=== PATIENT | female | born 1980 | race Caucasian/White ===

== ENCOUNTER → 2017-11-30 16:20 | Outpatient (CLI) | payer OTHER, SELFPAY ==
[2017-12-06 09:23] LABS: HPV APTIMA, High Risk Negative (Negative)
== END ==
PROVIDERS: Family Provider Family Medicine; PCP Family Medicine; Visit Provider Nurse Practitioner Women's Health
DX: Z12.4 Encounter for screening for malignant neoplasm of cervix (principal)
CPT/HCPCS: 88175; G0145

== ENCOUNTER 2020-12-20 18:00 | Outpatient (RCR) | payer BC, SELFPAY ==
[2020-03-16 08:33] VITALS: BMI 32.4
--- NOTE | 2020-11-29 18:54 | HP.PTEVAL ---
Patient's Visit Information DANAY CALIX is a 40 year old F referred to Physical Therapy by Dr. Tariq Saucedo MD with a diagnosis of Impingement syndrome of R shoulder. Date of Evaluation: 11/29/20 Physical Therapist: Alberto Cohen, PT, Cert MDT, OCS - Visit Plan Frequency: 1x/Week Duration: 4 Weeks Plan: 1x/week for 4 week per POC. PT Interventions: UE and Rotator cuff strengthening, postural training, flexibiliy, Shoulder AROM, body mechanics. - Subjective Patient is a 40 year old female presenting with R shoulder pain and symptoms indicating postural related shoulder abnormalities with possible impingement syndrome. 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 Reports pain of the lateral side of the arm. States this has been going on for 6 weeks (Insidious onset). Sleeping is difficult; sleeps on L side. Aleve helps to decrease pain. Denies going to physical therapy in the past for any injuries. Occassionaly gets numbness and tingling down the arm but stops at the elbow. Hx of wrist fractures bilaterally. X-ray unremarkable. 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 R shoulder flexion 145 degrees, abd 98 degrees, scaption 130 degrees. UE MMT: R shoulder flexion 4/5, abd 4-/5, IR 4/5, ER 4-/5, biceps 4+/5, elbow ext 4+/5. L shoulder flexion 5/5, abd 5/5, IR 4+/5, ER 4+/5, biceps 5/5, elbow ext 4+/5. Functional ER: Symmetrical B UE. Functional IR: L T 12, R sacrum. Posture: rounded shoulders, slightly forward head. Palpation: TTP along lateral deltoid, biccipital groove. Sensation: Intact to light touch in B UE. PROM: WFL - Special Tests R Shoulder Empty Can - SS: Positive R Shoulder Neer - Impingement: Positive - Goals Goal 1:: Patient will demonstrate independence with HEP. 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 Goal Time Frame: 4-6 Weeks Goal 3:: Patient will demonstrate painfree R shoulder AROM for improved functional mobility. Goal Time Frame: 4-6 Weeks Goal 4:: Patient will demonstrate 150 degrees of shoulder flexion/abd/scap for improved functional mobility and getting dressed. Goal Time Frame: 4-6 Weeks Goal 5:: Patient will improve QuickDASH score by 5 or > points for improved QOL. Goal Time Frame: 4-6 Weeks - Rehabilitation Potential Physical Therapy Diagnosis: Patient is a 40 year old female presenting to the clinic with R shoulder pain, painful MMT with noted rotator cuff weakness, and painful AROM. Demonstrates R shoulder PROM that is WFL. Symptoms are consistent with postural related impingement of R shoulder possible tendonesis. Rehabilitation Potential: Good - Anticipated Interventions Patient/Client Instruction: Educate patient on: Condition, Plan of Care For the Purpose of:: To decrease pain, To increase ROM, To improve muscle performance and motor function, To improve ability to perform ADL's, To increase tolerance to activity/condition/position, To improve performance and independence with ADL's, To improve ability of physical actions for home/community/work/leisure, To increase flexibility/ROM, To improve endurance, To assume or resume ADL's, To improve health and function, To improve self management, To improve ability to perform tasks related to life management, To improve tolerance to ADL's Therapeutic Exercise to Include: Strength training, Endurance training, Body mechanics, Postural training, Flexibilty training, Active ROM, Scapular Strength/Stabilization Comment: Rotator cuff strengthening, postural training. For the Purpose of:: To decrease pain, To increase ROM, To improve muscle performance and motor function, To improve ability to perform ADL's, To increase tolerance to activity/condition/position, To improve performance and independence with ADL's, To improve ability of physical actions for home/community/work/leisure, To increase flexibility/ROM, To improve endurance, To assume or resume ADL's, To improve health and function, To improve self management, To improve ability to perform tasks related to life management, To improve tolerance to ADL's IF ES: Yes Other electric stimulation: Yes Cryotherapy (ice pack, ice massage): Yes Thermo therapy (hot pack): Yes For the Purpose of:: To decrease pain, To increase ROM, To improve muscle performance and motor function, To improve ability to perform ADL's, To increase tolerance to activity/condition/position, To improve performance and independence with ADL's, To improve ability of physical actions for home/community/work/leisure, To increase flexibility/ROM, To improve endurance, To assume or resume ADL's, To improve health and function, To improve self management, To improve ability to perform tasks related to life management, To improve tolerance to ADL's Thank you for the opportunity to evaluate your patient. For Medicare and Medicare HMO plans, please review the plan of care and approve it. It will need to be FAXED BACK to us at [phone] for Medicare purposes. For Medicare only, by signing this I certify the plan of care. Please let me know if there are questions or concerns regarding this plan of care. Physician Signature: Date:
--- NOTE | 2020-12-20 18:41 | HP.PTDCSUM ---
It has been my pleasure to treat DANAY CALIX referred by Dr. Tariq Saucedo MD, with the diagnosis of Impingement syndrome of R shoulder for a total of 4 visit(s). Discharge Date: 12/20/20 Please see the following information for a summary of their discharge status. Subjective: 100 % no pain. Back normal with function Right Shoulder Pain Intensity (Out of 10): 0 % Improvement: 100 Objective/Function: AROM: SHOULDER FLEXION/ABD 165 DEGREES,ER,IR T9. MMT: RTC 4/5 SUPRASPINATOUS 4-/5 ,DELTOID Goal 1:: Patient will demonstrate independence with HEP. 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 Goal Progress: Goal Met Goal 3:: Patient will demonstrate painfree R shoulder AROM for improved functional mobility. Goal Progress: Goal Met Goal 4:: Patient will demonstrate 150 degrees of shoulder flexion/abd/scap for improved functional mobility and getting dressed. Goal Progress: Goal Met Goal 5:: Patient will improve QuickDASH score by 5 or > points for improved QOL. Plan: D/C Discharge Comments: hep If there are questions or concerns regarding this patient's physical therapy, please feel free to call me at [phone]. Thank you for the referral of this patient. Sincerely, Alberto Cohen PT, Cert MDT, OCS
== END 2020-12-20 19:00 | disposition home or self-care (01) ==
LOC: PT 18:00
PROVIDERS: PCP Family Medicine; Referring Provider Orthopaedic Surgery; Visit Provider Orthopaedic Surgery
DX: M75.41 Impingement syndrome of right shoulder (principal)
CPT/HCPCS: 97110; 97161

== ENCOUNTER → 2022-05-22 | Outpatient (CLI) | payer BC, SELFPAY ==
--- NOTE | 2022-05-22 07:11 | BI_ITS ---
MAMMOGRAPHY - BILATERAL SCREENING REASON FOR EXAM: Female, 42 years old. Routine annual screening examination. PERTINENT HISTORY: Aunt with breast cancer. TECHNIQUE: Digital bilateral breast adeola (3D mammographic acquisition) in the CC and MLO projections. 2-D mediolateral oblique (MLO) and craniocaudad (CC) views of both breasts were obtained. CAD: Full Field Digital Mammography with Computer Added Detection was performed. COMPARISON: None. Baseline examination. FINDINGS: Breast Composition: There are scattered areas of fibroglandular density. There are no dominant masses or suspicious calcifications. No other significant abnormalities are identified. There has been no significant change since the prior study. BI/SCRN MAMM (CAD)W/ADEOLA BILAT IMPRESSION: Stable bilateral screening mammogram. Yearly follow-up mammogram recommended. (A) ASSESSMENT CATEGORY: BIRADS Category 1: Negative. A letter regarding these results will be sent to the patient by the facility within 30 days. Approximately 10% of breast cancers are not detected by mammography. A normal mammogram should not delay biopsy of a clinically suspicious abnormality. Electronically Signed: Kirill Soriano, at 13:18 EDT ,
== END | disposition home or self-care (01) ==
LOC: OPBI 07:10
PROVIDERS: PCP Family Medicine; Visit Provider Nurse Practitioner Women's Health
DX: Z12.31 Encounter for screening mammogram for malignant neoplasm of breast (principal)
CPT/HCPCS: 77063; 77067

== ENCOUNTER → 2023-03-28 | Outpatient (CLI) | payer OTHER, SELFPAY ==
[2023-04-03 14:09] LABS: HPV APTIMA, High Risk Negative (Negative)
== END | disposition home or self-care (01) ==
LOC: LABSPEC 11:44
PROVIDERS: PCP Nurse Practitioner Primary Care; Referring Provider Nurse Practitioner Women's Health; Visit Provider Nurse Practitioner Women's Health
DX: Z12.4 Encounter for screening for malignant neoplasm of cervix (principal)
CPT/HCPCS: 87624; 88175; G0145

== ENCOUNTER → 2023-05-24 | Outpatient (CLI) | payer OTHER, SELFPAY ==
--- NOTE | 2023-05-24 07:07 | BI_ITS ---
MAMMOGRAPHY - BILATERAL SCREENING REASON FOR EXAM: Female, 43 years old. Routine annual screening examination. PERTINENT HISTORY: Aunt with breast cancer. TECHNIQUE: Digital bilateral breast adeola (3D mammographic acquisition) in the CC and MLO projections. 2-D mediolateral oblique (MLO) and craniocaudad (CC) views of both breasts were obtained. CAD: Full Field Digital Mammography with Computer Added Detection was performed. COMPARISON: Comparison is made with prior study May 22, 2022. FINDINGS: Breast Composition: There are scattered areas of fibroglandular density. There are no dominant masses or suspicious calcifications. No other significant abnormalities are identified. There has been no significant change since the prior study. BI/SCRN MAMM (CAD)W/ADEOLA BILAT IMPRESSION: Stable bilateral screening mammogram. Yearly follow-up mammogram recommended. (A) ASSESSMENT CATEGORY: BIRADS Category 1: Negative. A letter regarding these results will be sent to the patient by the facility within 30 days. Approximately 10% of breast cancers are not detected by mammography. A normal mammogram should not delay biopsy of a clinically suspicious abnormality. [id number] Electronically Signed: Raul Bah MD at 8:23 EDT ,
== END | disposition home or self-care (01) ==
LOC: OPBI 07:06
PROVIDERS: PCP Nurse Practitioner Primary Care; Referring Provider Nurse Practitioner Women's Health; Visit Provider Nurse Practitioner Women's Health
DX: Z12.31 Encounter for screening mammogram for malignant neoplasm of breast (principal)
CPT/HCPCS: 77063; 77067

== ENCOUNTER → 2024-05-26 | Outpatient (CLI) | payer OTHER, SELFPAY ==
--- NOTE | 2024-05-26 07:16 | BI_ITS ---
MAMMOGRAPHY - BILATERAL SCREENING REASON FOR EXAM: Female, 44 years old. Routine annual screening examination. PERTINENT HISTORY: Aunt with breast cancer. TECHNIQUE: Digital bilateral breast adeola (3D mammographic acquisition) in the CC and MLO projections. 2-D mediolateral oblique (MLO) and craniocaudad (CC) views of both breasts were obtained. CAD: Full Field Digital Mammography with Computer Added Detection was performed. COMPARISON: Comparison is made with prior study May 24, 2023 and May 22, 2022. FINDINGS: Breast Composition: There are scattered areas of fibroglandular density. There are no dominant masses or suspicious calcifications. No other significant abnormalities are identified. There has been no significant change since the prior study. BI/SCRN MAMM (CAD)W/ADEOLA BILAT IMPRESSION: Stable bilateral screening mammogram. Yearly follow-up mammogram recommended. (A) ASSESSMENT CATEGORY: BIRADS Category 1: Negative. A letter regarding these results will be sent to the patient by the facility within 30 days. Approximately 10% of breast cancers are not detected by mammography. A normal mammogram should not delay biopsy of a clinically suspicious abnormality. [id number] Electronically Signed: Raul Bah MD at 8:18 EDT ,
== END | disposition home or self-care (01) ==
LOC: OPBI 07:16
PROVIDERS: PCP Nurse Practitioner Primary Care; Referring Provider Nurse Practitioner Women's Health; Visit Provider Nurse Practitioner Women's Health
DX: Z12.31 Encounter for screening mammogram for malignant neoplasm of breast (principal)
CPT/HCPCS: 77063; 77067

== ENCOUNTER → 2025-05-28 | Outpatient (CLI) | payer OTHER, SELFPAY ==
--- OUTSIDE RECORDS SUMMARY | 2025-05-28 07:11 | XMS RPT_ITS | CCD ---
Author Organization [facility] Care Team Providers Care [employer] Guid[employer] Counselor Name Role Phone Podlogar GUARD IMMIGRATION.Beulah SHERWOOD Primary Care Provider Dr. Monik Palumbo Primary Care Provider Dr. Monik Palumbo Referring Provider Hood FISH DRIER FISH DRIER-C Trudi Attending Provider Podlogar GUARD IMMIGRATION.Beulah SHERWOOD Primary Care Provider Podlogar GUARD IMMIGRATION.Beulah SHERWOOD Primary Care Provider Dr. Monik Palumbo Referring Provider Hood FISH DRIER FISH DRIER-Clarissa Brush Attending Provider Podlogar FISH DRIERMACKENZIE Primary Care Provider Abena Cheng MD Primary Care Provider Abena Cheng MD Primary Care Provider Podlogar FISH DRIERBeulah Hagan Primary Care Provider Podlogar FISH DRIERBeulah Hagan Referring Provider Hood FISH DRIER-Trudi Romo Attending Provider Podlogar GUARD IMMIGRATION.Beulah SHERWOOD Unavailable Taylor GUARD IMMIGRATION.Erin SHERWOOD Unavailable GAVINLOGBEULAH RUIZ Attending Unavailable ABENA CHENG Primary Care Unavailable ABENA CHENG Primary Care Unavailable PODLOGARBEULAH Referring Unavailable PODLOGBEULAH RUIZ Attending Unavailable ABENA CHENG Primary Care Unavailable PODLOGAR, BEULAH Referring Unavailable ABENA CHENG Primary Care Unavailable MONIK LAZCANO Attending Unavailable ABENA CHENG Primary Care Unavailable Podlogar FISH DRIER, Beulah Primary Care Unavailable Podlogar FISH DRIER, Beulah Referring Unavailable Hood FISH DRIER, Trudi Attending Unavailable Podlogar FISH DRIER, Beulah Primary Care Unavailable Podlogar FISH DRIER, Beulah Referring Unavailable Marceline FISH DRIER, Trudi Attending Unavailable Hood FISH DRIER, Trudi Attending Unavailable Hood FISH DRIER, Trudi Referring Unavailable Podlogar FISH DRIER, Beulah Primary Care Unavailable Allergies Allergy Classification Reported Allergen(s) Allergy Type Date of Onset Reaction(s) Facility (16 sources) Penicillins; Translations: [PENICILLINS] Propensity to adverse reactions 6 [facility] Work Phone: (4 sources) Penicillin G Drug Allergy 2 Other [facility] (3 sources) Penicillins Propensity to adverse reactions 6 [facility] (1 source) Penicillin Drug Allergy 5 [facility] Repository Medications Current Medications Medication Drug Class(es) Dates Sig (Normalized) Sig (Original) benzonatate 100 mg oral capsule (1 source) Non-narcotic Antitussive Start: 04-05-2025 End: 04-12-2025 take 1 capsule by mouth every eight hours as needed benzonatate (TESSALON PERLE) 100 mg capsule Take 1 capsule by mouth three times a day as needed for cough for up to 7 days. 21 capsule 04/05/2025 04/12/2025 Active cephalexin 500 mg oral capsule (1 source) Cephalosporin Antibacterial Start: 01-06-2023 End: 01-11-2023 take 1 capsule by mouth four times daily cephALEXin (KEFLEX) 500 mg capsule Take 1 capsule by mouth four times daily for 5 days. 20 capsule 0 01/06/2023 01/11/2023 Active Comment on above: Take 1 capsule by [facility] four times daily for 5 days. doxycycline hyclate 100 mg oral tablet (2 sources) Tetracycline-class Drug Start: 04-05-2025 End: 04-10-2025 take 1 tablet by mouth twice daily doxycycline (VIBRA-TABS) 100 mg tablet Take 1 tablet by mouth two times a day for 5 days. 10 tablet 04/05/2025 04/10/2025 Active Start: 11-15-2022 End: 11-20-2022 take 1 tablet by mouth twice daily doxycycline monohydrate 100 mg tablet Take 1 tablet by mouth twice daily for 5 days. 10 tablet 0 11/15/2022 11/20/2022 Active Comment on above: Take 1 tablet by yeison twice daily for 5 days. levonorgestrel 0.221126 mg/hr intrauterine system (20 sources) Progestin, Progestin-containing Intrauterine Device Start: 01-26-2025 Levonorgestrel (Mirena) 21 mcg/24hr (up to 8 yrs) 52 mg intrauterine device Active 1 NMA INTRA-UTER ONCE January 26, 2025 12:00am as a single dose Start: 09-23-2019 levonorgestrel (MIRENA) 20 mcg/24 hours (5 yrs) 52 mg IUD 1 Each by INTRAUTERINE route one time only for 1 dose. Started February 2019 1 Each 09/23/2019 Active Start: 03-27-2019 End: 01-26-2025 Levonorgestrel (Liletta) 19. 5 mcg/24 hrs (5 yrs) 52 mg intrauterine device Discontinued 1 NMA INTRA-UTER ONCE March 27, 2019 12:00am January 26, 2025 11:00am Start: 03-27-2019 Levonorgestrel (Liletta) 19.5 mcg/24 hrs (5 yrs) 52 mg intrauterine device Active 1 DEVICE INTRA-UTER ONCE March 27, 2019 12:00am Comment on above: 1 Each by INTRAUTERI NE route one time only for 1 dose. Started February 2019 mupirocin 20 mg/ml topical cream (1 source) RNA Synthetase Inhibitor Antibacterial Start: 01-07-20 End: 01-17-20 mupirocin (BACTROBAN) 2 % cream Apply 1 application to affected area three times daily for 10 days. Location: right nares 30 g 0 01/06/2023 01/16/2023 Active Comment on above: Apply 1 application to affected area three times daily for 10 days. Location: right nares 24 hr phentermine 3.75 mg / topiramate 23 mg extended release oral capsule (3 sources) Sympathomimetic Amine Anorectic Start: 06-21-20 End: 07-05-20 take 1 capsule by mouth once daily phentermine-topiram ate ER (QSYMIA) 3.75-23 mg 24 Hr Capsule Indications: Obesity, Class II, BMI 35-39.9 Take 1 capsule by mouth once daily for 14 days. 14 capsule 0 06/21/2022 07/05/2022 Active Comment on above: Take 1 capsule by mo [facility] once daily for 14 days. Completed/Discontinued Medications Medication Drug Class(es) Dates Sig (Normalized) Sig (Original) 12 hr buPROPion hydrochloride 90 mg / naltrexone hydrochloride 8 mg extended release oral tablet (4 sources) Opioid Antagonist, Aminoketone Start: 06-07-2022 End: 06-16-2022 naltrexone-bupropi on (CONTRAVE) 8-90 mg ER tablet Indications: Obesity, Class II, BMI 35-39.9 Week 1: 1 tablet (8 mg naltrexone/90 mg bupropion) once daily. Week 2: 1 tablet twice daily. Week 3: 2 tablets in morning and one tablet in evening. Week 4: 2 tablets twice daily. 60 tablet 1 06/07/2022 06/16/2022 Discontinued (Course of therapy completed) Comment on above: Week 1: 1 tablet (8 mg naltrexone/90 mg bupropion) once daily. Week 2: 1 tablet twice daily. Week 3: 2 tablets in morning and one tablet in evening. Week 4: 2 tablets twice daily. calcium carbonate 1500 mg / cholecalciferol 0.01 mg oral tablet (2 sources) Vitamin D Start: 06-07-2021 End: 06-07-2022 take 1 tablet by mouth once daily calcium carbonate 600 mg-cholecalciferol 400 units (CALCIUM WITH VITAMIN D) 600 mg(1,500mg) -400 unit tab Take 1 tablet by mouth once daily. 0 06/07/2021 06/07/2022 Discontinued (Course of therapy completed) Comment on above: Take 1 tablet by [facility] once daily. Norgestimate-Ethinyl Estradiol (12 sources) Progestin, Estrogen Start: 12-20-2018 End: 02-13-2019 Norgestimate-Ethin yl Estradiol (Tri-Sprintec (28)) 0.18/0.215/0.25 mg-35 mcg (28) tablet Discontinued 1 {tbl} PO daily 84 December 20, 2018 8:21am February 13, 2019 8:26am Start: 12-20-2018 End: 02-13-2019 take 1 tablet by mouth once daily Norgestimate-Ethinyl Estradiol (Tri-Sprintec (28)) 0.18/0.215/0.25 mg-35 mcg (28) tablet Discontinued 1 TABLET PO daily 84 December 20, 2018 8:21am February 13, 2019 8:26am Start: 11-30-2017 End: 12-20-2018 Norgestimate-Ethinyl Estradi ol (Tri-Sprintec (28)) 0.18/0.215/0.25 mg-35 mcg (28) tablet Discontinued 1 {tbl} PO daily 84 November 30, 2017 10:02am December 20, 2018 8:27am Start: 11-30-2017 End: 12-20-2018 take 1 tablet by mouth once daily Norgestimate-Ethinyl Estradiol (Tri-Sprintec (28)) 0.18/0.215/0.25 mg-35 mcg (28) tablet Discontinued 1 TABLET PO daily 84 November 30, 2017 10:02am December 20, 2018 8:27am Start: 11-30-2017 End: 11-30-2017 Norgestimate-Ethinyl Estradi ol (Tri-Sprintec (28)) 0.18/0.215/0.25 mg-35 mcg (28) tablet Discontinued 1 {tbl} PO daily November 30, 2017 1:00am November 30, 2017 10:03am Start: 11-30-2017 End: 11-30-2017 take 1 tablet by mouth once daily Norgestimate-Ethinyl Estradiol (Tri-Sprintec (28)) 0.18/0.215/0.25 mg-35 mcg (28) tablet Discontinued 1 TABLET PO daily November 30, 2017 1:00am November 30, 2017 10:03am fluticasone propionate 0.05 mg/actuat metered dose nasal spray (3 sources) Corticosteroid Start: 11-15-2022 End: 06-13-2023 take 2 spray(s) by mouth once daily fluticasone (FLONASE) 50 mcg/actuation nasal spray Use 2 Sprays in each nostril once daily. Rinse mouth after use. 11.1 mL 0 11/15/2022 06/13/2023 Discontinued (Course of therapy completed) Comment on above: Use 2 Sprays in each nostril once daily. Rinse mouth after use. predniSONE 10 mg oral tablet (5 sources) Start: 11-15-2022 End: 06-13-2023 predniSONE (DELTASONE) 10 mg tablet Take 4 tabs daily for 3 days, then 2 tabs daily for 3 days, then 1 tab daily for 3 days with food. 21 tablet 0 01/06/2023 06/13/2023 Discontinued (Course of therapy completed) Comment on above: Take 4 tabs daily fo r 3 days, then 2 tabs daily for 3 days, then 1 tab daily for 3 days with food. Problems Active Problems Problem Classification Problem Date Documented Da te Episodic/Chronic Cardiac dysrhythmias (18 sources) Ventricular premature beats; Translations: [Ventricular premature depolarization] 09-23-2019 Chronic Other liver diseases (1 source) Elevated liver enzymes level; Translations: [Abnormal levels of other serum enzymes] Episodic Other nutritional; endocrine; and metabolic disorders (19 sources) Obese class I; Translations: [Obesity, unspecified] Onset: 05-19-2020 05-19-2020 Chronic Other nutritional; endocrine; and metabolic disorders (20 sources) Obese class II; Translations: [Obesity, unspecified] Onset: 06-07-2022 Chronic Other screening for suspected conditions (not mental disorders or infectious disease) (18 sources) Patient encounter status; Translations: [Encounter for screening mammogram for malignant neoplasm of breast] Onset: 03-30-2016 Resolved: 11-23-2016 Episodic Other skin disorders (1 source) Eruption; Translations: [Rash and other nonspecific skin eruption] Episodic Other upper respiratory disease (1 source) Chronic rhinitis; Translations: [Unspecified sinusitis (chronic)] Chronic Other upper respiratory infections (2 sources) Upper respiratory infection; Translations: [Acute upper respiratory infection, unspecified] Onset: 04-05-2025 04-05-2025 Episodic Past or Other Problems Problem Classification Problem Date Documented Date Episodic/Chronic Contraceptive and procreative management (2 sources) Contraception status; Translations: [Encounter for removal and reinsertion of intrauterine contraceptive device] Onset: 01-26-2025 01-26-2025 Episodic Other and delivery including normal (5 sources) Normal ; Translations: [Encounter for supervision of other normal , unspecified trimester] Onset: 10-06-2006 Resolved: 03-14-2011 03-14-2011 Episodic Screening and history of mental health and substance abuse codes (20 sources) Ex-smoker; Translations: [Personal history of nicotine dependence] Onset: 03-30-2016 10-03-2021 Episodic Viral infection (18 sources) Disease caused by 2019-nCoV; Translations: [COVID-19] Onset: 09-13-2020 09-13-2020 Episodic Results Test Name Value Interpretation Reference Range Facility CBC W Auto Differential pane l (Bld)on 04-16-2025 Basophils (Bld) [#/Vol] 0.04 10*3/uL Normal <0.11 [facility] Comment on above: Order Comment: Speci men Type: BLOOD SPECIMEN Ordering Facility: [facility] Address: [address] [place] [address] Performed By: #### 5 7021-8 #### [facility] CLIA [id number] [address] [place] [address] [place] Basophils/100 WBC (Bld) 0.7 % Normal C [facility] Comment on above: Order Comment: Speci men Type: BLOOD SPECIMEN Ordering Facility: [facility] Address: [address] [place] [address] Performed By: #### 5 7021-8 #### [facility] CLIA [id number] [address] [place] [address] [place] Differential cell count method Nom (Bld) Auto Normal [facility] Comment on above: Order Comment: Speci men Type: BLOOD SPECIMEN Ordering Facility: [facility] Address: [address] [place] [address] Performed By: #### 5 7021-8 #### [facility] CLIA [id number] [address] [place] [address] [place] Eosinophils (Bld) [#/Vol] 0.08 10*3/uL Normal <0.46 [facility] Comment on above: Order Comment: Speci men Type: BLOOD SPECIMEN Ordering Facility: [facility] Address: [address] [place] [address] Performed By: #### 5 7021-8 #### [facility] CLIA [id number] [address] [place] [address] [place] Eosinophils/100 WBC (Bld) 1.3 % Normal [facility] Comment on above: Order Comment: Speci men Type: BLOOD SPECIMEN Ordering Facility: [facility] Address: [address] [place] [address] Performed By: #### 5 7021-8 #### [facility] CLIA [id number] [address] [place] [address] [place] Erythrocyte distribution width (RBC) [Ratio] 11.8 % Normal 11.5-15.0 [facility] Comment on above: Order Comment: Speci men Type: BLOOD SPECIMEN Ordering Facility: [facility] Address: [address] [place] [address] Performed By: #### 5 7021-8 #### [facility] CLIA [id number] [address] [place] [address] [place] Hematocrit (Bld) [Volume fraction] 42.2 % Normal 36.0-46.0 [facility] Comment on above: Order Comment: Speci men Type: BLOOD SPECIMEN Ordering Facility: [facility] Address: [address] [place] [address] Performed By: #### 5 7021-8 #### [facility] CLIA [id number] [address] [place] [address] [place] Hemoglobin (Bld) [Mass/Vol] 14.3 g/dL Normal 11.5-15.5 [facility] Comment on above: Order Comment: Speci men Type: BLOOD SPECIMEN Ordering Facility: [facility] Address: [address] [place] [address] Performed By: #### 5 7021-8 #### [facility] CLIA [id number] [address] [place] [address] [place] Immature granulocytes (Bld) [#/Vol] 10*3/uL Normal <0.10 [facility] Comment on above: Order Comment: Speci men Type: BLOOD SPECIMEN Ordering Facility: [facility] Address: [address] [place] [address] Performed By: #### 5 7021-8 #### [facility] CLIA [id number] [address] [place] [address] [place] Immature granulocytes/100 WBC (Bld) 0.3 % Normal [facility] Comment on above: Order Comment: Speci men Type: BLOOD SPECIMEN Ordering Facility: [facility] Address: [address] [place] [address] Performed By: #### 5 7021-8 #### [facility] CLIA [id number] [address] [place] [address] [place] Lymphocytes (Bld) [#/Vol] 1.82 10*3/uL Normal 1.00-4.00 [facility] Comment on above: Order Comment: Speci men Type: BLOOD SPECIMEN Ordering Facility: [facility] Address: [address] [place] [address] Performed By: #### 5 7021-8 #### [facility] CLIA [id number] [address] [place] [address] [place] Lymphocytes/100 WBC (Bld) 29.9 % Normal [facility] Comment on above: Order Comment: Speci men Type: BLOOD SPECIMEN Ordering Facility: [facility] Address: [address] [place] [address] Performed By: #### 5 7021-8 #### [facility] CLIA [id number] [address] [place] [address] [place] MCH (RBC) [Entitic mass] 32.6 pg Normal 26.0-34.0 [facility] Comment on above: Order Comment: Speci men Type: BLOOD SPECIMEN Ordering Facility: [facility] Address: [address] [place] [address] Performed By: #### 5 7021-8 #### [facility] CLIA [id number] [address] [place] [address] [place] MCHC (RBC) [Mass/Vol] 33.9 g/dL Normal 30.5-36.0 [facility] Comment on above: Order Comment: Speci men Type: BLOOD SPECIMEN Ordering Facility: [facility] Address: [address] [place] [address] Performed By: #### 5 7021-8 #### [facility] CLIA [id number] [address] [place] [address] [place] MCV (RBC) [Entitic vol] 96.3 fL Normal 80.0-100.0 C [facility] Comment on above: Order Comment: Speci men Type: BLOOD SPECIMEN Ordering Facility: [facility] Address: [address] [place] [address] Performed By: #### 5 7021-8 #### [facility] CLIA [id number] [address] [place] [address] [place] Monocytes (Bld) [#/Vol] 0.43 10*3/uL Normal <0.87 [facility] Comment on above: Order Comment: Speci men Type: BLOOD SPECIMEN Ordering Facility: [facility] Address: [address] [place] [address] Performed By: #### 5 7021-8 #### [facility] CLIA [id number] [address] [place] [address] [place] Monocytes/100 WBC (Bld) 7.1 % Normal C [facility] Comment on above: Order Comment: Speci men Type: BLOOD SPECIMEN Ordering Facility: [facility] Address: [address] [place] [address] Performed By: #### 5 7021-8 #### [facility] CLIA [id number] [address] [place] [address] [place] Neutrophils (Bld) [#/Vol] 3.70 10*3/uL Normal 1.45-7.50 [facility] Comment on above: Order Comment: Speci men Type: BLOOD SPECIMEN Ordering Facility: [facility] Address: [address] [place] [address] Performed By: #### 5 7021-8 #### [facility] CLIA [id number] [address] [place] [address] [place] Neutrophils/100 WBC (Bld) 60.7 % Normal [facility] Comment on above: Order Comment: Speci men Type: BLOOD SPECIMEN Ordering Facility: [facility] Address: [address] [place] [address] Performed By: #### 5 7021-8 #### [facility] CLIA [id number] [address] [place] [address] [place] Nucleated RBC (Bld) [#/Vol] 10*3/uL Normal <0.01 [facility] Comment on above: Order Comment: Speci men Type: BLOOD SPECIMEN Ordering Facility: [facility] Address: [address] [place] [address] Performed By: #### 5 7021-8 #### [facility] CLIA [id number] [address] [place] [address] [place] Nucleated RBC/100 WBC (Bld) [Ratio] 0.0 /100 WBC Normal [facility] Comment on above: Order Comment: Speci men Type: BLOOD SPECIMEN Ordering Facility: [facility] Address: [address] [place] [address] Performed By: #### 5 7021-8 #### [facility] CLIA [id number] [address] [place] [address] [place] Platelet mean volume (Bld) [Entitic vol] 10.1 fL Normal 9.0-12.7 [facility] Comment on above: Order Comment: Speci men Type: BLOOD SPECIMEN Ordering Facility: [facility] Address: [address] [place] [address] Performed By: #### 5 7021-8 #### [facility] CLIA [id number] [address] [place] [address] [place] Platelets (Bld) [#/Vol] 240 10*3/uL Normal 150-400 [facility] Comment on above: Order Comment: Speci men Type: BLOOD SPECIMEN Ordering Facility: [facility] Address: [address] [place] [address] Performed By: #### 5 7021-8 #### [facility] CLIA [id number] [address] [place] [address] [place] RBC (Bld) [#/Vol] 4.38 10*6/uL Normal 3.90-5.20 [facility] Comment on above: Order Comment: Speci men Type: BLOOD SPECIMEN Ordering Facility: [facility] Address: [address] [place] [address] Performed By: #### 5 7021-8 #### [facility] CLIA [id number] [address] [place] [address] [place] WBC (Bld) [#/Vol] 6.09 10*3/uL Normal 3.70-11.00 [facility] Comment on above: Order Comment: Speci men Type: BLOOD SPECIMEN Ordering Facility: [facility] Address: [address] [place] [address] Performed By: #### 5 7021-8 #### [facility] CLIA [id number] [address] [place] [address] [place] Comprehensive metabolic 2000 panelon 04-16-2025 Albumin [Mass/Vol] 4.0 g/dL Normal 3.9-4.9 [facility] Comment on above: Order Comment: Speci men Type: BLOOD SPECIMEN Ordering Facility: [facility] Address: [address] [id number] Performed By: #### 2 4323-8, 07066-7 #### [facility] CLIA [id number] [address] [place] [address] [place] ALP [Catalytic activity/Vol] 62 U/L Normal 34-123 [facility] Comment on above: Order Comment: Speci men Type: BLOOD SPECIMEN Ordering Facility: [facility] Address: [address] [place] [address] Performed By: #### 2 4323-8, 90118-6 #### [facility] CLIA [id number] [address] [place] [address] [place] ALT [Catalytic activity/Vol] 17 U/L Normal 7-38 [facility] Comment on above: Order Comment: Speci men Type: BLOOD SPECIMEN Ordering Facility: [facility] Address: [address] [place] [address] Performed By: #### 2 4323-8, 44438-4 #### [facility] CLIA [id number] [address] [place] [address] [place] Anion gap [Moles/Vol] 10 mmol/L Normal 8-15 [facility] Comment on above: Order Comment: Speci men Type: BLOOD SPECIMEN Ordering Facility: [facility] Address: [address] [place], [place] [address] Performed By: #### 2 4323-8, 04870-2 #### [facility] CLIA [id number] [address] [place], [place] [id number] [place] AST [Catalytic activity/Vol] 20 U/L Normal 13-35 [facility] Comment on above: Order Comment: Speci men Type: BLOOD SPECIMEN Ordering Facility: [facility] Address: [address] [place], [place] [address] Performed By: #### 2 4323-8, 59892-3 #### [facility] CLIA [id number] [address] [place], [place] [id number] [place] Bilirubin [Mass/Vol] 0.5 mg/dL Normal 0.2-1.3 [facility] Comment on above: Order Comment: Speci men Type: BLOOD SPECIMEN Ordering Facility: [facility] Address: [address] [place] [address] Performed By: #### 2 4323-8, 71974-5 #### [facility] CLIA [id number] [address] [place] [address] [place] Calcium [Mass/Vol] 9.3 mg/dL Normal 8.5-10.2 [facility] Comment on above: Order Comment: Speci men Type: BLOOD SPECIMEN Ordering Facility: [facility] Address: [address] [place] [address] Performed By: #### 2 4323-8, 78642-8 #### [facility] CLIA [id number] [address] [place] [address] [place] Chloride [Moles/Vol] 105 mmol/L Normal 98-107 [facility] Comment on above: Order Comment: Speci men Type: BLOOD SPECIMEN Ordering Facility: [facility] Address: [address] [place] [address] Performed By: #### 2 4323-8, 71509-7 #### [facility] CLIA [id number] [address] [place] [address] [place] CO2 [Moles/Vol] 23 mmol/L Normal 22-30 [facility] Comment on above: Order Comment: Speci men Type: BLOOD SPECIMEN Ordering Facility: [facility] Address: [address] [place] [address] Performed By: #### 2 4323-8, 30216-9 #### [facility] CLIA [id number] [address] [place], [place] [id number] [place] Creatinine [Mass/Vol] 0.60 mg/dL Normal 0.58-0.96 [facility] Comment on above: Order Comment: Venkatesh donis Type: BLOOD SPECIMEN Ordering Facility: [facility] Address: [address] [place] [address] Performed By: #### 2 4323-8, 60783-2 #### [facility] CLIA [id number] [address] [place] [address] [place] Creatinine and Glomerular filtration rate.predicted panel (S/P/Bld) 114 mL/min/1.73m??? Normal >=60 [facility] Comment on above: Order Comment: Venkatesh donis Type: BLOOD SPECIMEN Ordering Facility: [facility] Address: [address] [place] [address] Result Comment: Melanie mated Glomerular Filtration Rate (eGFR) is calculated using the 2020 CKD-EPI creatinine equation. This equation utilizes serum creatinine, sex, and age as parameters. The creatinine assay has traceable calibration to isotope dilution-mass spectrometry. Refer to KDIGO guidelines for clinical interpretation. In patients with unstable renal function, e.g. those with acute kidney injury, the eGFR may not accurately reflect actual GFR. Performed By: #### 2 4323-8, 58389-7 #### [facility] CLIA [id number] [address] [place] [address] [place] Glucose [Mass/Vol] 84 mg/dL Normal 74-99 [facility] Comment on above: Order Comment: Venkatesh donis Type: BLOOD SPECIMEN Ordering Facility: [facility] Address: [address] [place] [address] Result Comment: The [place] Diabetes Association (ADA) provides guidance for cutoff values for fasting glucose and random glucose. The ADA defines fasting as no caloric intake for at least 8 hours. Fasting plasma glucose results between 100 to 125 mg/dL indicate increased risk for diabetes (prediabetes). Fasting plasma glucose results greater than or equal to 126 mg/dL meet the criteria for diagnosis of diabetes. In the absence of unequivocal hyperglycemia, results should be confirmed by repeat testing. In a patient with classic symptoms of hyperglycemia or hyperglycemic crisis, random plasma glucose results greater than or equal to 200 mg/dL meet the criteria for diagnosis of diabetes. Reference: Standards of Medical Care in Diabetes 2016, [place] Diabetes Association. Diabetes Care. 2016.39(Suppl 1). Performed By: #### 2 4323-8, 83150-1 #### [facility] CLIA [id number] [address] [place] [address] [place] Potassium [Moles/Vol] 4.9 mmol/L Normal 3.7-5.1 [facility] Comment on above: Order Comment: Speci men Type: BLOOD SPECIMEN Ordering Facility: [facility] Address: [address] [place] [address] Performed By: #### 2 4323-8, 15076-6 #### [facility] CLIA [id number] [address] [place] [address] [place] Protein [Mass/Vol] 6.3 g/dL Normal 6.3-8.0 [facility] Comment on above: Order Comment: Speci men Type: BLOOD SPECIMEN Ordering Facility: [facility] Address: [address] [place] [address] Performed By: #### 2 4323-8, 40056-4 #### [facility] CLIA [id number] [address] [place] [address] [place] Sodium [Moles/Vol] 138 mmol/L Normal 136-144 [facility] Comment on above: Order Comment: Speci men Type: BLOOD SPECIMEN Ordering Facility: [facility] Address: [address] [place] [address] Performed By: #### 2 4323-8, 26898-0 #### [facility] CLIA [id number] [address] [place], [place] [address] [place] Urea nitrogen [Mass/Vol] 12 mg/dL Normal 7-21 [facility] Comment on above: Order Comment: Speci men Type: BLOOD SPECIMEN Ordering Facility: [facility] Address: [address] [place], [place] [address] Performed By: #### 2 4323-8, 69512-9 #### [facility] CLIA [id number] [address] [place] [address] [place] Lipid 1996 panelon 5 Cholesterol [Mass/Vol] 191 mg/dL Normal <200 [facility] Comment on above: Order Comment: Speci men Type: BLOOD SPECIMEN Ordering Facility: [facility] Address: [address] [place] [address] Result Comment: <200 mg/dL, Desirable 200-239 mg/dL, Borderline high >239 mg/dL, High Performed By: #### 2 4323-8, 65001-3 #### [facility] CLIA [id number] [address] [place] [address] [place] Cholesterol in HDL [Mass/Vol] 54 mg/dL Normal >39 [facility] Comment on above: Order Comment: Speci men Type: BLOOD SPECIMEN Ordering Facility: [facility] Address: [address] [place] [address] Result Comment: 40-5 9 mg/dL, Acceptable >59 mg/dL, High: Negative risk factor for coronary heart disease <40 mg/dL, Low: Positive risk factor for coronary heart disease Performed By: #### 2 4323-8, 46561-5 #### [facility] CLIA [id number] [address] [place] [address] OF [facility] Cholesterol in LDL [Mass/Vol] 129 mg/dL High <100 [facility] Comment on above: Order Comment: Speci men Type: BLOOD SPECIMEN Ordering Facility: [facility] Address: [address] [place] [address] Result Comment: <100 mg/dL, Optimal 100-129 mg/dL, Near optimal/above optimal 130-159 mg/dL, Borderline high 160-189 mg/dL, High >189 mg/dL, Very high Secondary prevention optimal LDL Cholesterol levels are recommended to be <70 mg/dL LDL cholesterol is calculated using the Freedman-NIH equation. Performed By: #### 2 4323-8, 66535-5 #### [facility] CLIA [id number] [address] [place] [id number] [place] Cholesterol in LDL/Cholesterol in HDL [Mass ratio] 2.39 {ratio} Normal <2.54 [facility] Comment on above: Order Comment: Venkatesh donis Type: BLOOD SPECIMEN Ordering Facility: [facility] Address: [address] [place] [address] Result Comment: Devonte moreno: 1. National Cholesterol Education Program ATP III Guideline At-A-Glance Quick Desk Reference: National Heart, Lung, and Blood Crawford. National Institutes of Health. 2001: NIH Publication No. 01-3305. 2. An International Atherosclerosis Society position paper: global recommendations for the management of dyslipidemia: executive summary, Atherosclerosis. 2014: 232(2):410-413. Performed By: #### 2 4323-8, 84614-2 #### [facility] CLIA [id number] [address] [place] [address] [place] Cholesterol in VLDL [Mass/Vol] 7 mg/dL Normal <30 [facility] Comment on above: Order Comment: Venkatesh donis Type: BLOOD SPECIMEN Ordering Facility: [facility] Address: [address] [place] [address] Performed By: #### 2 4323-8, 00773-1 #### [facility] CLIA [id number] [address] [place] [address] [place] Cholesterol non HDL [Mass/Vol] 137 mg/dL High <130 [facility] Comment on above: Order Comment: Venkatesh donis Type: BLOOD SPECIMEN Ordering Facility: [facility] Address: [address] [place] [address] Result Comment: <130 mg/dL, Optimal 130-159 mg/dL, Near optimal/above optimal 160-189 mg/dL, Borderline high 190-219 mg/dL, High >219 mg/dL, Very high Secondary prevention optimal non HDL Cholesterol levels are recommended to be <100 mg/dL Performed By: #### 2 4323-8, 91174-3 #### [facility] CLIA [id number] [address] [place] [address] [place] Cholesterol.total/Sierra sterol in HDL [Mass ratio] 3.54 {ratio} Normal <5.10 [facility] Comment on above: Order Comment: Speci men Type: BLOOD SPECIMEN Ordering Facility: [facility] Address: [address] [place] [address] Performed By: #### 2 4323-8, 76255-0 #### [facility] CLIA [id number] [address] [place] [address] [place] FASTING TIME 13 hrs Normal [facility] Comment on above: Order Comment: Speci men Type: BLOOD SPECIMEN Ordering Facility: [facility] Address: [address] [place] [address] Performed By: #### 2 4323-8, 80697-5 #### [facility] CLIA [id number] [address] [place] [address] [place] Triglyceride [Mass/Vol] 40 mg/dL Normal <150 [facility] Comment on above: Order Comment: Speci men Type: BLOOD SPECIMEN Ordering Facility: [facility] Address: [address] [place] [address] Result Comment: <150 mg/dL, Normal 150-199 mg/dL, Borderline high 200-499 mg/dL, High >499 mg/dL, Very high Performed By: #### 2 4323-8, 23129-1 #### [facility] CLIA [id number] [address] [place] [address] [place] CNOVon 04-15-2025 CNOV Office Visit (FAMPWS ) MIRNA CALIX ([id number]) 1980 F Date Time Provider Department 04/15/25 6:00 PM BEULAH JANE During your visit today, we recorded the following information about you: Pulse Respiration Blood pressure Weight 67/minute 16/minute 92/68 82.2 kg Height 1.562 m Beulah Jane 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 Patient/authorized cash application representative agreed to proceed SUBJECTIVE: This is a 45 year old that is here today for Above Complaints. Annual Wellness Exam: - No changes since last visit. - Current on all screenings. - Last mammogram in May, with normal results. PAST MEDICAL HISTORY Diagnosis Date COVID-19 virus infection 09/13/2020 09/11/2020 Ex-smoker 03/30/2016 Started around 20 yo, Quit around - was social smoking NEGATIVE MEDICAL HISTORY PVC (premature ventricular contraction) ALLERGIES Penicillins MEDICATIONS Current Outpatient Medications Medication Sig levonorgestrel (MIRENA) 20 mcg/24 hours (5 yrs) 52 mg IUD 1 Each by INTRAUTERINE route one time only for 1 dose. Started February 2019 No current facility-administered medications for this visit. Medications and allergies reviewed by this provider. SOCIAL HISTORY Social History Tobacco Use Smoking status: Former Current packs/day: 0.00 Types: Cigarettes Start date: 10/08/1997 Quit date: 10/08/1999 Years since quittin.5 Smokeless tobacco: Never Tobacco comments: Only smoked a half a pack about every three weeks. Quit around the year 1999. 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 OBJECTIVE: BP 92/68 Pulse 67 Resp 16 Ht 156.2 cm (5' 1.5) Wt 82.2 kg (181 lb 3.2 oz) LMP 12/13/2016 (Exact Date) SpO2 96% BMI 33.69 kg/m? . Vital signs reviewed by this provider. APPEARANCE Well appearing, alert, in no acute distress, well-hydrated, well nourished. EYES PERRLA, conjunctiva and sclera normal. EARS External ears normal, canals clear NECK Supple, no adenopathy; thyroid symmetric, normal size, no bruits HEART RRR with normal S1 and S2, no murmurs, no gallops, no JVD appreciated LUNG clear to auscultation. No wheezes, rhonchi or rales ABDOMEN bowel sounds normoactive, no bruits, soft, non-tender, non-distended EXTREMITIES Extremities normal, No deformities, No skin discoloration, and No edema SKIN Skin color, texture, turgor normal, no suspicious rashes or lesions to exposed skin 1. Annual physical exam (Z00.00) - No significant changes since last visit. - Patient has Mirena IUD in place. - Mammogram performed in May at the hospital; results were normal.. - Physical examination unremarkable. - Ordered fasting labs; patient instructed to fast for 10-12 hours prior to lab draw. - Patient to schedule next annual physical exam in one year, sooner if needed Prescription instructions reviewed with patient as applicable. Patient advised if symptoms do not improve or if symptoms worsen sooner, to contact their primary care physician. Potential red flag symptoms discussed with the patient. Reviewed appropriate action plan to take if red flag symptoms occur. Patient agreeable to treatment plan. Allergies As of Date: 04/15/2025 Noted Allergy Reaction PENICILLINS 08/15/2006 Comments: CHILDHOOD REACTION Date Reviewed: 04/15/2025 Reviewed by: Valerie Alfaro LPN - Fully Assessed Reason for Visit: Physical [83] Primary Visit Diagnosis:Annual physical exam [Z00.00] Order(s):LIPID PANEL, FASTING [SQLIPB] Order # (more content not included)... Normal [facility] CNOVon 04-05-2025 CNOV Office Visit (UCWSTR ) MIRNA CALIX ([id number]) 1980 F Date Time Provider Department 04/05/25 1:00 PM MONIK LAZCANO [facility] During your visit today, we recorded the following information about you: Temperature Pulse Respiration Blood pressure 99.3 degrees 79/minute 18/minute 99/68 Weight 82.3 kg Monik Lazcano, NISH.TIRE REGROOVING MACHINE OPERATOR 04/05/2025 1:20 PM Signed Subjective HPI Nontoxic-appearing female presents urgent care chief complaint cough chest congestion. Duration of symptoms 6 days. Associated symptoms listed above. Most prominent symptom is cough. Has also developed worsening sinus pressure. OTC medications none. Unknown sick contacts. Denies any high fevers. No chest pain or hemoptysis. No pleuritic pain. Denies any nausea vomiting or significant abdominal pain. Is not is not breast-feeding. Past medical history prescription medications allergies reviewed. .Patient presents with: Head Congestion: Cough, chest congestion, low fever x6 days PAST MEDICAL HISTORY Diagnosis Date COVID-19 virus infection 09/13/2020 09/11/2020 Ex-smoker 03/30/2016 Started around 20 yo, Quit around - was social smoking NEGATIVE MEDICAL HISTORY PVC (premature ventricular contraction) PAST SURGICAL HISTORY Procedure Laterality Date DILATION AND CURETTAGE DXAND/THER NONOBSTETRIC Dilation AND curettage PAST SURGICAL HISTORY OF 1987 +/- removal of tonsils PAST SURGICAL HISTORY OF 1993 nose surgery ALLERGIES Penicillins MEDICATIONS levonorgestrel (MIRENA) 20 mcg/24 hours (5 yrs) 52 mg IUD 1 Each by INTRAUTERINE route one time only for 1 dose. Started February 2019 FAMILY HISTORY Problem Relation Age of Onset other (osteopenia) Mother Alcohol/Drug Father ALCOHOHOL Prostate Cancer Father Osteoporosis Maternal Grandmother Coronary Artery Disease Paternal Grandfather mid 60's Breast Cancer Paternal Aunt Diagnosed at age 49 Heart Other paternal great grandparents. Breast Cancer Other PGGM - unsure of age Social History Tobacco Use Smoking status: Former Current packs/day: 0.00 Types: Cigarettes Start date: 10/08/1997 Quit date: 10/08/1999 Years since quittin.5 Smokeless tobacco: Never Tobacco comments: Only smoked a half a pack about every three weeks. Quit around the year 1999. Substance Use Topics Alcohol use: Yes Comment: Socially Drug use: No BP 99/68 Pulse 79 Temp 37.4 ?C (99.3 ?F) Resp 18 Wt 82.3 kg (181 lb 7 oz) LMP 12/13/2016 (Exact Date) SpO2 99% BMI 34.17 kg/m? Review of Systems Constitutional: Positive for fever and malaise/fatigue. Negative for chills. HENT: Positive for congestion, sinus pain and sore throat. Negative for ear discharge and ear pain. Eyes: Negative for blurred vision, pain, discharge and redness. Respiratory: Positive for cough and sputum production. Negative for hemoptysis, shortness of breath, wheezing and stridor. Cardiovascular: Negative for chest pain. Gastrointestinal: Negative for abdominal pain, diarrhea, nausea and vomiting. Musculoskeletal: Positive for myalgias. Skin: Negative for itching and rash. Neurological: Positive for headaches. Negative for dizziness. Objective Physical Exam Constitutional: General: She is not in acute distress. Appearance: She is not diaphoretic. HENT: Head: Normocephalic. Jaw: No trismus, tenderness, swelling or pain on movement. Nose: Congestion present. Right Sinus: Maxillary sinus tenderness present. Left Sinus: Maxillary sinus tenderness present. Mouth/Throat: Mouth: Mucous membranes are moist. Pharynx: Oropharynx is clear. Uvula midline. No pharyngeal swelling, oropharyngeal exudate, posterior oropharyngeal erythema or uvula swelling. Eyes: Conjunctiva/sclera: Conjunctivae normal. Pupils: Pupils are equal, round, and reactive to light. Cardiovascular: Rate and Rhythm: Normal rate and regular rhythm. Heart sounds: Normal heart sounds. Pulmonary: Effort: Pulmonary effort is normal. No tachypnea, accessory muscle usage or respiratory distress. Breath sounds: No stridor. Rhonchi present. No wheezing or rales. Abdominal: General: There is no distension. Palpations: Abdomen is soft. Tenderness: There is no abdominal tenderness. There is no guarding or rebound. Musculoskeletal: Cervical back: Normal range of motion and neck supple. No edema, erythema, rigidity or tenderness. No pain with movement. Normal range of motion. Lymphadenopathy: Cervical: No cervical adenopathy. Skin: General: Skin is warm and dry. Neurological: Mental Status: She is alert and oriented to person, place, and time. ASSESSMENT/PLAN: 1. URI with cough and congestion - ICD9: 465.9, ICD10: J06.9 Diagnosis URI and cough congestion. Suspicious secondary bacterial infection with 5 days of lung sounds. Placed on doxycycline. Cough suppressant as (more content not included)... 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 Required: No Is patient in pain?: No Allergies penicillin G Allergy (Mild, Verified 03/11/25 11:05) Other Medications ???Medication ???Instructions ???Recorded ???Confirmed ???Type levonorgestrel (Mirena) 1 device intrauterine ONCE 5 03/11/25 History Post menopausal: No Patient : No : [facility] Social History Smoking Status: Never smoker alcohol intake: current details: social substance use type: does not use caffeine: Yes frequency: 3-4 times per week seatbelt use: always do you feel safe at home: Yes additional social history: Carlos- Insurance 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 Has had no irregular bleeding or pain with IUD. History 3 Elective abortions Hx Para 2 Spontaneous abortions Hx # Term Pregnancies Ectopic pregnancies Hx # Pregnancies Multiple births # of living children Past Pregnancies Del. Date Name GA/Weeks Outcome Route Bth Weight Infant Gen Labor Lgth Anesthesia Del Locatn Provider FOB Unknown 2006 Litzy Unknown 2010 Mattie ROS Const Constitutional: Reports system reviewed and no additional complaints, except as documented Eyes Eyes: Reports system reviewed and no additional complaints, except as documented GI GI: Denies abdominal pain or change in bowel habits : Reports as per HPI Exam Const General: cooperative and no acute distress Orientation: oriented x3 General: bladder normal to palpation External Female Exam: normal external appearance and normal appearance of the urethra Urethra: normal appearance of the urethra Speculum Exam - Vagina: normal appearance of the vagina, normal vaginal discharge, no lesions and nontender Speculum Exam - Cervix: normal appearance of the cervix (IUD strings 3cm from os) Bimanual Exam- Vagina Uterus: normal bimanual exam, uterine size normal, bladder normal to palpation, uterine shape normal, uterine mobility normal and non-tender Bimanual Exam- Adnexa, other: normal adnexae, no masses and non-tender Coding Level of Care Code Off vis,est,level 3 Diagnoses IUD check up Z30.431 Assessment and Plan Assessment and Plan (1) IUD check up: Orders: Orders SCRN MAMM (CAD)W/ADEOLA BILAT Today Z12.39 - Encounter for other screening for malignant neoplasm of breast Plan IUD properly placed. Mammogram ordered RTO 1 year, prn 03/11/25 1138 Date Trudi Morataya NP FISH DRIER-C Cosigner Signature: Date (if applicable) CC: Normal [facility] Manufacturing Lead Office Visit Reporton 01-26-2025 Manufacturing Lead Office Visit Report [facility] [address] [facility] [address], [address] [place] [address] OFFICE VISIT Date of Service: 01/26/25 MR#: [id number] Acct: [id number] Name: MIRNA CALIX Rep #: [id number] : 1980 Provider: MACKENZIE schreiber Age/Sex: 44/F Location[place] [facility] [place] Status: Signed Intake Vital Signs 04/02/24 08:10 01/26/25 11:00 01/26/25 11:05 Height 5 ft 1 in 5 ft 1 in 5 ft 1 in Weight: 208 lb 4 oz 184 lb 8 oz BMI 39.3 34.8 BP 116/72 126/82 H Intake Visit Reasons: LILETTA REMOVAL AND RE-INSERT Chief Complaint: IUD removal and Re-Insertion Teacher 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 Clerical Required: No Is patient in pain?: No Allergies penicillin G Allergy (Mild, Verified 01/26/25 11:07) Other Medications ???Medication ???Instructions ???Recorded ???Confirmed ???Type levonorgestrel (Mirena) 1 device intrauterine ONCE 5 01/26/25 History Is last menstrual period known: No Post menopausal: No Patient : No : No PFSH PFSH Social History Smoking Status: Never smoker alcohol intake: current details: social substance use type: does not use caffeine: Yes frequency: 3-4 times per week seatbelt use: always do you feel safe at home: Yes additional social history: 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 Date Name GA/Weeks Outcome Route Bth Weight Infant Gen Labor Lgth Anesthesia Del Locatn Provider FOB Unknown 2006 Litzy Unknown 2010 Mattie HPI LILETTA REMOVAL AND RE-INSERT Details: MIRNA CALIX is a 44 year old who presents for removal IUD and replace with mirena IUD ROS Const Constitutional: Reports system reviewed and no additional complaints, except as documented Eyes Eyes: Reports system reviewed and no additional complaints, except as documented GI GI: Denies abdominal pain or change in bowel habits : Reports as per HPI Exam Const General: cooperative and no acute distress Orientation: oriented x3 General: bladder normal to palpation External Female Exam: normal external appearance and normal appearance of the urethra Urethra: normal appearance of the urethra Speculum Exam - Vagina: normal appearance of the vagina, normal vaginal discharge, no lesions and nontender Speculum Exam - Cervix: normal appearance of the cervix Bimanual Exam- Vagina Uterus: normal bimanual exam, uterine size normal, bladder normal to palpation, uterine shape normal, uterine mobility normal and non-tender Bimanual Exam- Adnexa, other: normal adnexae, no masses and non-tender Office Procedures IUD Removal IUD Removal Details: Sign out documentation: Completed Procedure: Speculum placed in vagina, IUD string visualized and grasped with ring forceps. IUD easily removed in its entirety and patient tolerated well. IUD Insertion IUD GC/Chlamydia:: not done Test: Yes Not Applicable Consent Signed: Yes Time out checklist: patient, procedure, site marked/identified, positioning of patient, supplies available, allergies confirmed and team agrees on procedure IUD: Yes Mirena IUD inserted Time out time: 11:10 Details: Sign in Communication: Completed Sign out documentation: Completed The uterus sounded to 7 cm. After prepping the cervix with betadine and using sterile technique, the cervix was grasped with a single tooth tenaculum and the IUD was inserted without difficulty and the string was cut to 3cm from the external os of the cervix. All instruments were removed from the vagina and excellent hemostasis was noted. Procedure Summary: patient tolerated the procedure well without complication. Office Meds levonorgestrel 21 mcg/24 hr (up to 8 years) 52 mg intrauterine device Performing Provider: MACKENZIE Manley NP Performing Location: [facility] Administered by: MACKENZIE Manley NP on 01/26/25 11:08 Dose Route Admin Location Dispensed Lot Number Expiration Date [facility] Man ufacturer 1 insert intrauterine [facility] 1 insert [id number] 03/07/27 90093-3 LINDA,PHARM DIV Coding Level of Care Code Bruce Noy Diagnoses Remove/insert IUD Z30.433 Assessment and Plan Assessment and Plan (1) Remove/insert IUD: Orders: Orders Mirena IUD Today Z30.430 - Encounter for insertion of intrauterine contraceptive device IUD Removal Today Z30.432 - Encounter for removal of intrauterine contraceptive device Plan Reviewed S S infection and condom use. Written information given RTO 6 weeks 01/26/25 1 (more content not included)... Normal [facility] Comprehensive metabolic 2000 panelon 07-11-2024 Albumin [Mass/Vol] 4.2 g/dL Normal 3.9-4.9 [facility] Comment on above: Order Comment: Speci men Type: BLOOD SPECIMEN Ordering Facility: [facility] Address: [address] [place] [address] Performed By: #### 2 4323-8, 41280-6 #### [facility] CLIA [id number] [address] [place] [address] [place] ALP [Catalytic activity/Vol] 61 U/L Normal 34-123 [facility] Comment on above: Order Comment: Speci men Type: BLOOD SPECIMEN Ordering Facility: [facility] Address: [address] [place] [address] Performed By: #### 2 4323-8, 70099-3 #### [facility] CLIA [id number] [address] [place] [address] [place] ALT [Catalytic activity/Vol] 12 U/L Normal 7-38 [facility] Comment on above: Order Comment: Speci men Type: BLOOD SPECIMEN Ordering Facility: [facility] Address: [address] [place] [address] Performed By: #### 2 4323-8, 79397-2 #### [facility] CLIA [id number] [address] [place] [address] [place] Anion gap [Moles/Vol] 10 mmol/L Normal 8-15 [facility] Comment on above: Order Comment: Speci men Type: BLOOD SPECIMEN Ordering Facility: [facility] Address: [address] [place] [address] Performed By: #### 2 4323-8, 56890-3 #### [facility] CLIA [id number] [address] [place] [address] [place] AST [Catalytic activity/Vol] 18 U/L Normal 13-35 [facility] Comment on above: Order Comment: Speci men Type: BLOOD SPECIMEN Ordering Facility: [facility] Address: [address] [place] [address] Performed By: #### 2 4323-8, 25774-8 #### [facility] CLIA [id number] [address] [place] [address] [place] Bilirubin [Mass/Vol] 0.5 mg/dL Normal 0.2-1.3 [facility] Comment on above: Order Comment: Speci men Type: BLOOD SPECIMEN Ordering Facility: [facility] Address: [address] [place] [address] Performed By: #### 2 4323-8, 37275-0 #### [facility] CLIA [id number] [address] [place] [address] [place] Calcium [Mass/Vol] 9.6 mg/dL Normal 8.5-10.2 [facility] Comment on above: Order Comment: Speci men Type: BLOOD SPECIMEN Ordering Facility: [facility] Address: [address] [place] [id number] Performed By: #### 2 4323-8, 52547-1 #### [facility] CLIA [id number] [address] [place] [address] [place] Chloride [Moles/Vol] 104 mmol/L Normal 98-107 [facility] Comment on above: Order Comment: Speci men Type: BLOOD SPECIMEN Ordering Facility: [facility] Address: [address] [place] [address] Performed By: #### 2 4323-8, 77602-2 #### [facility] CLIA [id number] [address] [place] [address] [place] CO2 [Moles/Vol] 25 mmol/L Normal 22-30 [facility] Comment on above: Order Comment: Speci men Type: BLOOD SPECIMEN Ordering Facility: [facility] Address: [address] [place] [address] Performed By: #### 2 4323-8, 83900-3 #### [facility] CLIA [id number] [address] [place] [address] [place] Creatinine [Mass/Vol] 0.74 mg/dL Normal 0.58-0.96 [facility] Comment on above: Order Comment: Speci men Type: BLOOD SPECIMEN Ordering Facility: [facility] Address: [address] [place] [address] Performed By: #### 2 4323-8, 87423-7 #### [facility] CLIA [id number] [address] [place] [address] [place] Creatinine and Glomerular filtration rate.predicted panel (S/P/Bld) 104 mL/min/1.73m??? Normal >=60 [facility] Comment on above: Order Comment: Speci men Type: BLOOD SPECIMEN Ordering Facility: [facility] Address: [address] [place] [address] Result Comment: Melanie mated Glomerular Filtration Rate (eGFR) is calculated using the 2020 CKD-EPI creatinine equation. This equation utilizes serum creatinine, sex, and age as parameters. The creatinine assay has traceable calibration to isotope dilution-mass spectrometry. Refer to KDIGO guidelines for clinical interpretation. In patients with unstable renal function, e.g. those with acute kidney injury, the eGFR may not accurately reflect actual GFR. Performed By: #### 2 4323-8, 53534-9 #### [facility] CLIA [id number] [address] [place] [address] [place] Glucose [Mass/Vol] 89 mg/dL Normal 74-99 [facility] Comment on above: Order Comment: Specroger men Type: BLOOD SPECIMEN Ordering Facility: [facility] Address: [address] [place] [address] Result Comment: The [place] Diabetes Association (ADA) provides guidance for cutoff values for fasting glucose and random glucose. The ADA defines fasting as no caloric intake for at least 8 hours. Fasting plasma glucose results between 100 to 125 mg/dL indicate increased risk for diabetes (prediabetes). Fasting plasma glucose results greater than or equal to 126 mg/dL meet the criteria for diagnosis of diabetes. In the absence of unequivocal hyperglycemia, results should be confirmed by repeat testing. In a patient with classic symptoms of hyperglycemia or hyperglycemic crisis, random plasma glucose results greater than or equal to 200 mg/dL meet the criteria for diagnosis of diabetes. Reference: Standards of Medical Care in Diabetes 2016, [place] Diabetes Association. Diabetes Care. 2016.39(Suppl 1). Performed By: #### 2 4323-8, 74529-6 #### [facility] CLIA [id number] [address] [place] [address] [place] Potassium [Moles/Vol] 4.5 mmol/L Normal 3.7-5.1 [facility] Comment on above: Order Comment: Venkatesh donis Type: BLOOD SPECIMEN Ordering Facility: [facility] Address: [address] [place] [address] Performed By: #### 2 4323-8, 79699-2 #### [facility] CLIA [id number] [address] [place] [address] [place] Protein [Mass/Vol] 6.7 g/dL Normal 6.3-8.0 [facility] Comment on above: Order Comment: Venkatesh donis Type: BLOOD SPECIMEN Ordering Facility: [facility] Address: [address] [place] [address] Performed By: #### 2 4323-8, 91345-5 #### [facility] CLIA [id number] [address] [place], [place] [address] [place] Sodium [Moles/Vol] 139 mmol/L Normal 136-144 [facility] Comment on above: Order Comment: Speci men Type: BLOOD SPECIMEN Ordering Facility: [facility] Address: [address] [place] [address] Performed By: #### 2 4323-8, 22585-6 #### [facility] CLIA [id number] [address] [place] [address] [place] Urea nitrogen [Mass/Vol] 14 mg/dL Normal 7-21 [facility] Comment on above: Order Comment: Speci men Type: BLOOD SPECIMEN Ordering Facility: [facility] Address: [address] [place] [address] Performed By: #### 2 4323-8, 92430-3 #### [facility] CLIA [id number] [address] [place] [address] [place] Lipid 1996 panelon 4 Cholesterol [Mass/Vol] 179 mg/dL Normal <200 [facility] Comment on above: Order Comment: Speci men Type: BLOOD SPECIMEN Ordering Facility: [facility] Address: [address] [place] [address] Result Comment: <200 mg/dL, Desirable 200-239 mg/dL, Borderline high >239 mg/dL, High Performed By: #### 2 4323-8, 16575-5 #### [facility] CLIA [id number] [address] [place] [address] [place] Cholesterol in HDL [Mass/Vol] 49 mg/dL Normal >39 [facility] Comment on above: Order Comment: Speci men Type: BLOOD SPECIMEN Ordering Facility: [facility] Address: [address] [place] [address] Result Comment: 40-5 9 mg/dL, Acceptable >59 mg/dL, High: Negative risk factor for coronary heart disease <40 mg/dL, Low: Positive risk factor for coronary heart disease Performed By: #### 2 4323-8, 69937-3 #### [facility] CLIA [id number] [address] [place] [address] [place] Cholesterol in LDL [Mass/Vol] 120 mg/dL High <100 [facility] Comment on above: Order Comment: Speci men Type: BLOOD SPECIMEN Ordering Facility: [facility] Address: [address] [place] [address] Result Comment: <100 mg/dL, Optimal 100-129 mg/dL, Near optimal/above optimal 130-159 mg/dL, Borderline high 160-189 mg/dL, High >189 mg/dL, Very high Secondary prevention optimal LDL Cholesterol levels are recommended to be < 70 mg/dL Performed By: #### 2 4323-8, 91205-4 #### [facility] CLIA [id number] [address] [place] [address] [place] Cholesterol in LDL/Cholesterol in HDL [Mass ratio] 2.45 {ratio} Normal <2.54 [facility] Comment on above: Order Comment: Speci men Type: BLOOD SPECIMEN Ordering Facility: [facility] Address: [address] [place] [address] Result Comment: Devonte moreno: 1. National Cholesterol Education Program ATP III Guideline At-A-Glance Quick Desk Reference: National Heart, Lung, and Blood Crawford. National Institutes of Health. 2001: NIH Publication No. 01-3305. 2. An International Atherosclerosis Society position paper: global recommendations for the management of dyslipidemia: executive summary, Atherosclerosis. 2014: 232(2):410-413. Performed By: #### 2 4323-8, 85764-7 #### [facility] CLIA [id number] [address] [place] [address] [place] Cholesterol in VLDL [Mass/Vol] 10 mg/dL Normal <30 [facility] Comment on above: Order Comment: Lawrencei men Type: BLOOD SPECIMEN Ordering Facility: [facility] Address: [address] [place] [address] Performed By: #### 2 4323-8, 20917-4 #### [facility] CLIA [id number] [address] [place] [address] [place] Cholesterol non HDL [Mass/Vol] 130 mg/dL High <130 [facility] Comment on above: Order Comment: Speci men Type: BLOOD SPECIMEN Ordering Facility: [facility] Address: [address] [place] [address] Result Comment: <130 mg/dL, Optimal 130-159 mg/dL, Near optimal/above optimal 160-189 mg/dL, Borderline high 190-219 mg/dL, High >219 mg/dL, Very high Secondary prevention optimal non HDL Cholesterol levels are recommended to be <100 mg/dL Performed By: #### 2 4323-8, 47011-5 #### [facility] CLIA [id number] [address] [place] [address] [place] Cholesterol.total/Sierra sterol in HDL [Mass ratio] 3.65 {ratio} Normal <5.10 [facility] Comment on above: Order Comment: Speci men Type: BLOOD SPECIMEN Ordering Facility: [facility] Address: [address] [place] [address] Performed By: #### 2 4323-8, 66520-5 #### [facility] CLIA [id number] [address] [place] [address] [place] FASTING TIME 12 hrs Normal [facility] Comment on above: Order Comment: Speci men Type: BLOOD SPECIMEN Ordering Facility: [facility] Address: [address] [place] [address] Performed By: #### 2 4323-8, 67265-1 #### [facility] CLIA [id number] [address] [place] [address] [place] Triglyceride [Mass/Vol] 48 mg/dL Normal <150 [facility] Comment on above: Order Comment: Speci men Type: BLOOD SPECIMEN Ordering Facility: [facility] Address: [address] [place] [address] Result Comment: <150 mg/dL, Normal 150-199 mg/dL, Borderline high 200-499 mg/dL, High >499 mg/dL, Very high Performed By: #### 2 4323-8, 11910-8 #### [facility] CLIA [id number] [address] [place] [address] [place] CNOVon 07-09-2024 CNOV Office Visit (FAMPWS ) MIRNA CALIX ([id number]) 1980 F Date Time Provider Department 07/09/24 5:00 PM BEULAH JANE During your visit today, we recorded the following information about you: Pulse Respiration Blood pressure Weight 68/minute 16/minute 104/78 92.1 kg Height 1.552 m Beulah Jane APRN.TIRE REGROOVING MACHINE OPERATOR 07/09/2024 5:21 PM Signed 07/09/2024 Patient presents with: Physical SUBJECTIVE: This is a 44 year old that is here today for Above Complaints. Since last office visit has been in good health without ER visits or hospitalizations. No concerns today Eats Low carb and low sugar diet. Tries to walk a couple of times a week. PAST MEDICAL HISTORY Diagnosis Date COVID-19 virus infection 09/13/2020 09/11/2020 Ex-smoker 03/30/2016 Started around 20 yo, Quit around [age] was social smoking NEGATIVE MEDICAL HISTORY PVC (premature ventricular contraction) ALLERGIES Penicillins MEDICATIONS Current Outpatient Medications Medication Sig levonorgestrel (MIRENA) 20 mcg/24 hours (5 yrs) 52 mg IUD 1 Each by INTRAUTERINE route one time only for 1 dose. Started February 2019 No current facility-administered medications for this visit. Medications and allergies reviewed by this provider. SOCIAL HISTORY Social History Tobacco Use Smoking status: Former Current packs/day: 0.00 Types: Cigarettes Start date: 10/08/1997 Quit date: 10/08/1999 Years since quittin.7 Smokeless tobacco: Never Tobacco comments: Only smoked a half a pack about every three weeks. Quit around the year 1999. 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 OBJECTIVE: BP 104/78 Pulse 68 Resp 16 Ht 155.2 cm (5' 1.1) Wt 92.1 kg (203 lb 0.7 oz) LMP 12/13/2016 (Exact Date) SpO2 98% BMI 38.24 kg/m? . Vital signs reviewed by this provider. APPEARANCE Well appearing, alert, in no acute distress, well-hydrated, well nourished. EYES conjunctiva and sclera normal. EARS External ears normal, canals clear NECK Supple, no adenopathy; thyroid symmetric, normal size, no bruits HEART RRR with normal S1 and S2, no murmurs, no gallops, no JVD appreciated LUNG clear to auscultation. No wheezes, rhonchi or rales ABDOMEN bowel sounds normoactive, no bruits, soft, non-tender, non-distended EXTREMITIES Extremities normal, No deformities, No skin discoloration, and No edema SKIN Skin color, texture, turgor normal, no suspicious rashes or lesions to exposed skin Latest Ref Rng 06/14/2023 Protein, Total 6.3 - 8.0 g/dL 6.0 (L) Albumin 3.9 - 4.9 g/dL 3.9 Calcium 8.5 - 10.2 mg/dL 8.7 Bilirubin, Total 0.2 - 1.3 mg/dL 0.4 Alkaline Phosphatase 34 - 123 U/L 67 AST 13 - 35 U/L 20 ALT 7 - 38 U/L 14 Glucose 74 - 99 mg/dL 87 BUN 7 - 21 mg/dL 12 Creatinine 0.58 - 0.96 mg/dL 0.66 Sodium 136 - 144 mmol/L 140 Potassium 3.7 - 5.1 mmol/L 4.4 Chloride 97 - 105 mmol/L 107 (H) CO2 22 - 30 mmol/L 24 Anion Gap 9 - 18 mmol/L 9 eGFR >=60 mL/min/1.73m? 113 Cholesterol, Total <200 mg/dL 176 Triglyceride <150 mg/dL 39 HDL Cholesterol >39 mg/dL 61 Non HDL Cholesterol <130 mg/dL 115 Fasting Time hrs 10 VLDL Cholesterol <30 mg/dL 8 TC:HDL Ratio <5.10 2.89 LDL Cholesterol <100 mg/dL 107 (H) LDL:HDL Ratio <2.54 1.75 Legend: (L) Low (H) High Hepatitis C Screening Never done HIV Screening Never done Hepatitis B Vaccine(1 of 3 - 19+ 3-dose series) Never done Influenza Vaccine(1) due on 04/06/2025 Covid-19 Vaccine( season) due on 07/09/2025 Mammogram Screening due on 05/24/2025 Depression Screening due on 07/09/2025 Anxiety Screening due on 07/09/2025 DTaP,Tdap,Td Vaccine(2 - Td or Tdap) due on 03/30/2026 Cervical Cancer Screening due on 03/28/2028 HPV (more content not included)... Normal [facility] Cervical or vagninal specime n microscopic examination by cytology stain (reported asOrdered By: Trudi Morataya on 03-28-2023 Cytology report Cyto stain Doc (Cvx/Vag) Comment . [facility] Comment on above: The Pap smear is a s creening test designed to aid in thedetection of premalignant and malignant conditions of theuterine cervix. It is not a diagnostic procedure andshould not be used as the sole means of detecting cervicalcancer. Both false-positive and false-negative reports dooccur. Detection in cervical specim en of any of human papilloma virus (HPV) 16, 18, 31, 33,Ordered By: Trudi Morataya on 03-28-2023 HPV 16+18+31+33+35+39+45+51 +52+56+58+59+66+68 DNA Probe+sig amp Ql (Cvx) Negative Negative [facility] Comment on above: This nucleic acid am plification test detects fourteen high-risk HPV types (16,18,31,33,35,39,45,51,52,56,58,59,66,68)without differentiation. Laboratory - CytologyOrdered By: Trudi Morataya on 03-28-2023 Vehicle Body Maker Cyto stain Nom (Cvx/Vag) [ID] Comment . [facility] Comment on above: Sharlene Romero, Cytotec hnologist (ASCP) Laboratory - Miscellaneous t estsOrdered By: Trudi Morataya on 03-28-2023 Service comment (Unsp spec) [Interp] Comment . [facility] Comment on above: This liquid based Th inPrep(R) pap test was screened withthe use of an image guided system. Service comment (Unsp spec) [Interp] . . [facility] Liquid-based cerv Pap + CT/G C by CHERELLE w reflex to high-risk HPV for ASCUSOrdered By: Trudi Morataya on 03-28-2023 Cytology report Cyto stain.thin prep Doc (Cvx/Vag) Comment . [facility] Comment on above: Criteria not met, HP V Genotype not performed.Performed at: [facility] [id number] Director: Joselin Waldrop MD, Phone: [phone] at: [facility] - [facility] Cyto [id number] [place], [place] [id number] Director: Bronson Narvaez MD, Phone: [phone] at: =[facility] - [facility], [place] [id number] Director: Joselin Waldrop MD, Phone: [phone] No Panel InformationOrdered By: Trudi Morataya on 03-28-2023 Pathology report final diagnosis Narrative Comment . [facility] Comment on above: NEGATIVE FOR INTRAEP ITHELIAL LESION OR MALIGNANCY.THIS SPECIMEN WAS RESCREENED PART OF OUR CONTOUR PATH TAPE MILL OPERATOR PROGRAM. HCG QUAL UR B/Oon 06-16-2022 status Negative neg - pos [facility] Quality Check Yes [facility] Vital Signs Date Time Vital Sign Value Performing Clinician Facility 04-15-2025 18:02-0400 Body height 156.2 cm Beulah Podlogar GUARD IMMIGRATION.TIRE REGROOVING MACHINE OPERATOR Work Phone: [facility] 04-15-2025 18:02-0400 Body mass index (BMI) [Ratio] 33.69 kg/m2 Beulah Podlogar GUARD IMMIGRATION.TIRE REGROOVING MACHINE OPERATOR Work Phone: [facility] 04-15-2025 18:02-0400 Body weight 82.19 kg Beulah Podlogar GUARD IMMIGRATION.TIRE REGROOVING MACHINE OPERATOR Work Phone: [facility] 04-15-2025 18:02-0400 Diastolic blood pressure 68 mm[Hg] Beulah Podlogar GUARD IMMIGRATION.TIRE REGROOVING MACHINE OPERATOR Work Phone: [facility] 04-15-2025 18:02-0400 Heart rate 67 /min Beulah Podlogar GUARD IMMIGRATION.TIRE REGROOVING MACHINE OPERATOR Work Phone: [facility] 04-15-2025 18:02-0400 Respiratory rate 16 /min Beulah Podlogar GUARD IMMIGRATION.TIRE REGROOVING MACHINE OPERATOR Work Phone: [facility] 04-15-2025 18:02-0400 SaO2% (BldA) [Mass fraction] 96 % Beulah Podlogar GUARD IMMIGRATION.TIRE REGROOVING MACHINE OPERATOR Work Phone: [facility] 04-15-2025 18:02-0400 Systolic blood pressure 92 mm[Hg] Beulah Podlogar GUARD IMMIGRATION.TIRE REGROOVING MACHINE OPERATOR Work Phone: [facility] 04-05-2025 13:03-0400 Body mass index (BMI) [Ratio] 34.17 kg/m2 Monik Lazcano GUARD IMMIGRATION.TIRE REGROOVING MACHINE OPERATOR Work Phone: [facility] 04-05-2025 13:03-0400 Body temperature 99.3 [degF] Monik Lazcano GUARD IMMIGRATION.TIRE REGROOVING MACHINE OPERATOR Work Phone: [facility] 04-05-2025 13:03-0400 Body weight 82.3 kg Monik Cadencejoyce GUARD IMMIGRATION.TIRE REGROOVING MACHINE OPERATOR Work Phone: [facility] 04-05-2025 13:03-0400 Diastolic blood pressure 68 mm[Hg] [facility] GUARD IMMIGRATION.TIRE REGROOVING MACHINE OPERATOR Work Phone: [facility] 04-05-2025 13:03-0400 Heart rate 79 /min Monik Lazcano GUARD IMMIGRATION.TIRE REGROOVING MACHINE OPERATOR Work Phone: [facility] 04-05-2025 13:03-0400 Respiratory rate 18 /min [facility]ik [facility] GUARD IMMIGRATION.TIRE REGROOVING MACHINE OPERATOR Work Phone: [facility] 04-05-2025 13:03-0400 SaO2% (BldA) [Mass fraction] 99 % [facility] GUARD IMMIGRATION.TIRE REGROOVING MACHINE OPERATOR Work Phone: [facility] 04-05-2025 13:03-0400 Systolic blood pressure 99 mm[Hg] [facility] GUARD IMMIGRATION.TIRE REGROOVING MACHINE OPERATOR Work Phone: [facility] 03-11-2025 11:07-0400 Body height 154.94 cm Beulah Luciologbienvenido [employer] DRIER-C Work Phone: [facility] 03-11-2025 11:05-0400 Body mass index (BMI) [Ratio] 34.7 kg/m2 Beulah Luciologbienvenido [employer]-C Work Phone: [facility] 03-11-2025 11:05-0400 Body weight 83.51 kg Beulah Luciologar [employer]-C Work Phone: [facility] 03-11-2025 11:05-0400 Diastolic blood pressure 76 mm[Hg] Beulah Podlogar [employer]-C Work Phone: [facility] 03-11-2025 11:05-0400 Systolic blood pressure 114 mm[Hg] Beulah Luciologar [employer]-C Work Phone: [facility] 01-26-2025 11:00-0400 Body mass index (BMI) [Ratio] 34.8 kg/m2 Beulah Podlogar [employer]C Work Phone: [facility] 01-26-2025 11:00-0400 Body weight 83.68 kg Beulah Podlogar [employer]-C Work Phone: [facility] 01-26-2025 11:00-0400 Diastolic blood pressure 82 mm[Hg] Beulah Podlogar [employer]C Work Phone: [facility] 01-26-2025 11:00-0400 Systolic blood pressure 126 mm[Hg] Beulah Podlogar [employer]C Work Phone: [facility] 07-09-2024 17:05-0400 Body height 155.2 cm Beulah Podlogar GUARD IMMIGRATION.TIRE REGROOVING MACHINE OPERATOR Work Phone: [facility] 07-09-2024 17:05-0400 Body mass index (BMI) [Ratio] 38.24 kg/m2 Beulah Podlogar GUARD IMMIGRATION.TIRE REGROOVING MACHINE OPERATOR Work Phone: [facility] 07-09-2024 17:05-0400 Body weight 92.1 kg Beulah Podlogar GUARD IMMIGRATION.TIRE REGROOVING MACHINE OPERATOR Work Phone: [facility] 07-09-2024 17:05-0400 Diastolic blood pressure 78 mm[Hg] Beulah Podlogar GUARD IMMIGRATION.TIRE REGROOVING MACHINE OPERATOR Work Phone: [facility] 07-09-2024 17:05-0400 Heart rate 68 /min Beulah Podlogar GUARD IMMIGRATION.TIRE REGROOVING MACHINE OPERATOR Work Phone: [facility] 07-09-2024 17:05-0400 Respiratory rate 16 /min Beulah Podlogar GUARD IMMIGRATION.TIRE REGROOVING MACHINE OPERATOR Work Phone: [facility] 07-09-2024 17:05-0400 SaO2% (BldA) [Mass fraction] 98 % Beulah Podlogar GUARD IMMIGRATION.TIRE REGROOVING MACHINE OPERATOR Work Phone: [facility] 07-09-2024 17:05-0400 Systolic blood pressure 104 mm[Hg] Beulah Podlogar GUARD IMMIGRATION.TIRE REGROOVING MACHINE OPERATOR Work Phone: [facility] 06-13-2023 16:51-0400 Body height 155.5 cm Beulah Podlogar GUARD IMMIGRATION.TIRE REGROOVING MACHINE OPERATOR Work Phone: [facility] 06-13-2023 16:51-0400 Body weight 94.98 kg Beulah Podlogar GUARD IMMIGRATION.TIRE REGROOVING MACHINE OPERATOR Work Phone: [facility] 06-13-2023 16:51-0400 Diastolic blood pressure 76 mm[Hg] Beulah Podlogar GUARD IMMIGRATION.TIRE REGROOVING MACHINE OPERATOR Work Phone: [facility] 06-13-2023 16:51-0400 Heart rate 68 /min Beulah Podlogar GUARD IMMIGRATION.TIRE REGROOVING MACHINE OPERATOR Work Phone: [facility] 06-13-2023 16:51-0400 Respiratory rate 16 /min Beulah Podlogar GUARD IMMIGRATION.TIRE REGROOVING MACHINE OPERATOR Work Phone: [facility] 06-13-2023 16:51-0400 SaO2% (BldA) [Mass fraction] 99 % Beulah Podlogar GUARD IMMIGRATION.TIRE REGROOVING MACHINE OPERATOR Work Phone: [facility] 06-13-2023 16:51-0400 Systolic blood pressure 104 mm[Hg] Beulah Podlogar GUARD IMMIGRATION.TIRE REGROOVING MACHINE OPERATOR Work Phone: [facility] 03-28-2023 08:50-0400 Body height 154.[address] Monik Palumbo Work Phone: [facility] 03-28-2023 08:50-0400 Body mass index (BMI) [Ratio] 37.8 kg/m2 Dr. Monik Palumbo Work Phone: [facility] 03-28-2023 08:50-0400 Body weight 90.[address] Monik Palumbo Work Phone: [facility] 03-28-2023 08:50-0400 Diastolic blood pressure 74 mm[Hg] Dr. Monik Palumbo Work Phone: [facility] 03-28-2023 08:50-0400 Systolic blood pressure 126 mm[Hg] Dr. Monik Palumbo Work Phone: [facility] 01-06-2023 09:47-0400 Body temperature 98.49 [degF] Laya Duque GUARD IMMIGRATION.TIRE REGROOVING MACHINE OPERATOR Work Phone: [facility] 01-06-2023 09:47-0400 Body weight 88 kg Laya Duque GUARD IMMIGRATION.TIRE REGROOVING MACHINE OPERATOR Work Phone: [facility] 01-06-2023 09:47-0400 Diastolic blood pressure 68 mm[Hg] Laya Duque GUARD IMMIGRATION.TIRE REGROOVING MACHINE OPERATOR Work Phone: [facility] 01-06-2023 09:47-0400 Heart rate 95 /min Laya Duque GUARD IMMIGRATION.TIRE REGROOVING MACHINE OPERATOR Work Phone: [facility] 01-06-2023 09:47-0400 Respiratory rate 21 /min Laya Duque GUARD IMMIGRATION.TIRE REGROOVING MACHINE OPERATOR Work Phone: [facility] 01-06-2023 09:47-0400 SaO2% (BldA) [Mass fraction] 99 % Laya Duque GUARD IMMIGRATION.TIRE REGROOVING MACHINE OPERATOR Work Phone: [facility] 01-06-2023 09:47-0400 Systolic blood pressure 100 mm[Hg] Laya Duque GUARD IMMIGRATION.TIRE REGROOVING MACHINE OPERATOR Work Phone: [facility] 11-15-2022 19:18-0500 Body temperature 99.19 [degF] Laya Duque GUARD IMMIGRATION.TIRE REGROOVING MACHINE OPERATOR Work Phone: [facility] 11-15-2022 19:18-0500 Body weight 91.63 kg Laya Duque GUARD IMMIGRATION.TIRE REGROOVING MACHINE OPERATOR Work Phone: [facility] 11-15-2022 19:18-0500 Diastolic blood pressure 72 mm[Hg] Laya Duque GUARD IMMIGRATION.TIRE REGROOVING MACHINE OPERATOR Work Phone: [facility] 11-15-2022 19:18-0500 Heart rate 94 /min Laya Duque GUARD IMMIGRATION.TIRE REGROOVING MACHINE OPERATOR Work Phone: [facility] 11-15-2022 19:18-0500 Respiratory rate 16 /min Laya Duque GUARD IMMIGRATION.TIRE REGROOVING MACHINE OPERATOR Work Phone: [facility] 11-15-2022 19:18-0500 SaO2% (BldA) [Mass fraction] 96 % Laya Duque GUARD IMMIGRATION.TIRE REGROOVING MACHINE OPERATOR Work Phone: [facility] 11-15-2022 19:18-0500 Systolic blood pressure 112 mm[Hg] Laya Duque GUARD IMMIGRATION.TIRE REGROOVING MACHINE OPERATOR Work Phone: [facility] 06-16-2022 07:56-0400 Body weight 91.63 kg Beulah Podlogar GUARD IMMIGRATION.TIRE REGROOVING MACHINE OPERATOR Work Phone: [facility] 06-16-2022 07:56-0400 Diastolic blood pressure 72 mm[Hg] Beulah Podlogar GUARD IMMIGRATION.TIRE REGROOVING MACHINE OPERATOR Work Phone: [facility] 06-16-2022 07:56-0400 Heart rate 68 /min Beulah Podlogar GUARD IMMIGRATION.TIRE REGROOVING MACHINE OPERATOR Work Phone: [facility] 06-16-2022 07:56-0400 Respiratory rate 16 /min Beulah Podlogar GUARD IMMIGRATION.TIRE REGROOVING MACHINE OPERATOR Work Phone: [facility] 06-16-2022 07:56-0400 SaO2% (BldA) [Mass fraction] 100 % Beulah Podlogar GUARD IMMIGRATION.TIRE REGROOVING MACHINE OPERATOR Work Phone: [facility] 06-16-2022 07:56-0400 Systolic blood pressure 100 mm[Hg] Beulah Podlogar GUARD IMMIGRATION.TIRE REGROOVING MACHINE OPERATOR Work Phone: [facility] 06-07-2022 18:02-0400 Body height 156.5 cm Beulah Podlogar GUARD IMMIGRATION.TIRE REGROOVING MACHINE OPERATOR Work Phone: [facility] 06-07-2022 18:02-0400 Body weight 90.81 kg Beulah Podlogar GUARD IMMIGRATION.TIRE REGROOVING MACHINE OPERATOR Work Phone: [facility] 06-07-2022 18:02-0400 Diastolic blood pressure 72 mm[Hg] Beulah Podlogar GUARD IMMIGRATION.TIRE REGROOVING MACHINE OPERATOR Work Phone: [facility] 06-07-2022 18:02-0400 Heart rate 76 /min Beulah Podlogar GUARD IMMIGRATION.TIRE REGROOVING MACHINE OPERATOR Work Phone: [facility] 06-07-2022 18:02-0400 Respiratory rate 16 /min Beulah Podlogar GUARD IMMIGRATION.TIRE REGROOVING MACHINE OPERATOR Work Phone: [facility] 06-07-2022 18:02-0400 SaO2% (BldA) [Mass fraction] 97 % Beulah Podlogar GUARD IMMIGRATION.TIRE REGROOVING MACHINE OPERATOR Work Phone: [facility] 06-07-2022 18:02-0400 Systolic blood pressure 108 mm[Hg] Beulah Podlogar GUARD IMMIGRATION.TIRE REGROOVING MACHINE OPERATOR Work Phone: [facility] 03-27-2022 08:18-0400 Body height 154.[address] Monik Palumbo Work Phone: [facility] Work Phone: 03-27-2022 08:18-0400 Body mass index (BMI) [Ratio] 33.6 kg/m2 Dr. Monik Palumbo Work Phone: [facility] Work Phone: 03-27-2022 08:17-0400 Body weight 90.[address] Monik Palumbo Work Phone: [facility] Work Phone: 03-27-2022 08:17-0400 Diastolic blood pressure 68 mm[Hg] Dr. Monik Palumbo Work Phone: [facility] Work Phone: 03-27-2022 08:17-0400 Systolic blood pressure 110 mm[Hg] Dr. Monik Palumbo Work Phone: [facility] Work Phone: Encounters Encounter Date Encounter Type Care Provider Facility Start: 05-28-2025 ambulatory Trudi Morataya NP Facil ity:[facility] Start: 04-17-2025 End: 04-17-2025 Follow-up encounter Ana Das MA [facility] [place] Comment on above: Results Start: 04-16-2025 End: 04-16-2025 ambulatory ABENA CHENG Facility:[facility] Start: 04-15-2025 End: 04-15-2025 ambulatory BEULAH PODLOGAR Facility:[facility] Start: 04-15-2025 End: 04-15-2025 Patient encounter procedure Beulah Podlogar GUARD IMMIGRATION.TIRE REGROOVING MACHINE OPERATOR Work Phone: [facility] [place] Comment on above: Annual physical exam (Primary Dx) Start: 04-05-2025 End: 04-05-2025 Office outpatient visit 25 minutes Monik Lazcano GUARD IMMIGRATION.TIRE REGROOVING MACHINE OPERATOR Work Phone: [facility] Comment on above: URI with cough and c ongestion (Primary Dx) Start: 04-05-2025 End: 04-05-2025 ambulatory MONIK LAZCANO Facility:[facility] Start: 03-11-2025 End: 03-11-2025 Patient encounter procedure Trudi Morataya [facility] Work Phone: Start: 03-11-2025 End: 03-11-2025 ambulatory Beulah Podlogar [employer]C Work Phone: [facility] Work Phone: Start: 01-26-2025 End: 01-26-2025 Patient encounter procedure Trudi Morataya [facility]C -[facility] Work Phone: Start: 01-26-2025 End: 01-26-2025 ambulatory Beulah Podlogar FISH DRIER Facility:[facility] Start: 07-11-2024 End: 07-11-2024 ambulatory BEULAH PODLOGAR Facility:[facility] Start: 07-09-2024 End: 07-09-2024 ambulatory BEULAH PODLOGAR Facility:[facility] Start: 07-09-2024 End: 07-09-2024 Patient encounter procedure Beulah Podlogar GUARD IMMIGRATION.TIRE REGROOVING MACHINE OPERATOR Work Phone: [facility] [place] Comment on above: Annual wellness visi t (Primary Dx); Screening for depression; Encounter for screening examination for other mental health and behavioral disorders Start: 06-18-2024 End: 06-23-2024 ambulatory Abena Cheng MD Work Phone: [facility] Start: 06-15-2023 Telephone encounter Beulah nieto GUARD IMMIGRATION.TIRE REGROOVING MACHINE OPERATOR Work Phone: [facility] Comment on above: Results Start: 06-13-2023 End: 06-13-2023 Patient encounter procedure Beulah Jane GUARD IMMIGRATION.TIRE REGROOVING MACHINE OPERATOR Work Phone: [facility] Comment on above: Annual physical exam (Primary Dx); Screening for hyperlipidemia Start: 05-24-2023 End: 05-24-[address] Monik Palumbo Work Phone: [facility] Work Phone: Start: 05-24-2023 End: 05-24-[address] Monik Palumbo Work Phone: [facility]-Outpatient Breast Imaging Work Phone: Start: 03-28-2023 End: 03-28-[address] Monik Palumbo Work Phone: [facility] Work Phone: Start: 03-28-2023 End: 03-28-[address] Monik Palumbo Work Phone: [facility]-Laboratory, Specimen Start: 03-28-2023 End: 03-28-[address] Monik Palumbo Work Phone: [facility] Start: 01-06-2023 End: 01-06-2023 Patient encounter procedure Laya Duque GUARD IMMIGRATION.TIRE REGROOVING MACHINE OPERATOR Work Phone: [facility] Comment on above: Rash and nonspecific skin eruption (Primary Dx) Start: 11-15-2022 End: 11-15-2022 Patient encounter procedure Laya Duque APRN.TIRE REGROOVING MACHINE OPERATOR Work Phone: [facility] Comment on above: Rhinosinusitis (Prim yola Dx) Start: 06-27-2022 ambulatory Beulah Podlogar GUARD IMMIGRATION.TIRE REGROOVING MACHINE OPERATOR Work Phone: [facility] [place] Comment on above: Qsymia Start: 06-27-2022 E-mail encounter fro m caregiver Beulah Jane APRN.TIRE REGROOVING MACHINE OPERATOR Work Phone: [facility] [place] Start: 06-21-2022 Telephone encounter Beulah nieto APRN.TIRE REGROOVING MACHINE OPERATOR Work Phone: [facility] [place] Comment on above: Results Insurance Authorizat ion Start: 06-16-2022 End: 06-16-2022 Patient encounter procedure Beulah Luciologbienvenido MOCK.TIRE REGROOVING MACHINE OPERATOR Work Phone: [facility] [place] Comment on above: Obesity, Class II, B AR 35-39.9 (Primary Dx); Encounter for medication monitoring Start: 06-09-2022 Telephone encounter Beulah nieto APRN.TIRE REGROOVING MACHINE OPERATOR Work Phone: [facility] [place] Comment on above: Forms Results Start: 06-08-2022 Telephone encounter Beulah nieto APRN.TIRE REGROOVING MACHINE OPERATOR Work Phone: [facility] [place] Comment on above: Medication Problem; Patient Update Start: 06-07-2022 End: 06-07-2022 Patient encounter procedure Beulah Jane APRN.TIRE REGROOVING MACHINE OPERATOR Work Phone: [facility] [place] Comment on above: Annual physical exam (Primary Dx); Obesity, Class II, BMI 35-39.9 Start: 05-22-2022 End: 05-22-[address] Monik Palumbo Work Phone: [facility]-Outpatient Breast Imaging Start: 05-17-2022 ambulatory Beulah Jane APRN.TIRE REGROOVING MACHINE OPERATOR Work Phone: [facility] [place] Start: 03-27-2022 End: 03-27-[address] Monik Palumbo Work Phone: [facility] Start: 03-30-2016 End: 11-23-2016 Patient encounter status Abena Cheng MD Work Phone: [facility] Work Phone: Start: 07-18-2010 End: 10-21-2012 Patient encounter status Abena Cheng MD Work Phone: [facility] Work Phone: Procedures Date Procedure Procedure Detail Performing Clinician Start: 07-09-2024 Adult depression scr eening assessment Beulah Podlogar GUARD IMMIGRATION.TIRE REGROOVING MACHINE OPERATOR Work Phone: Start: 05-24-2023 Screening mammography Santo Palumbo Work Phone: Start: 05-14-2023 Mammography Beulah Podl ogar GUARD IMMIGRATION.TIRE REGROOVING MACHINE OPERATOR Work Phone: Start: 06-16-2022 Urine test visual color cmprsn meths Beulah Podlogar GUARD IMMIGRATION.TIRE REGROOVING MACHINE OPERATOR Work Phone: Start: 06-07-2022 Adult depression scr eening assessment Beulah Podlogar GUARD IMMIGRATION.TIRE REGROOVING MACHINE OPERATOR Work Phone: Start: 05-22-2022 End: 05-22-[address] Monik Palumbo Work Phone: Start: 03-30-2016 Adult depression scr eening assessment Beulah Podlogar GUARD IMMIGRATION.TIRE REGROOVING MACHINE OPERATOR Work Phone: Plan of Treatment Date Care Activity Detail Author Start: 03-28-2028 HPV TESTING HPV TESTING [facility] Start: 03-28-2028 PAP TESTING PAP TESTING [facility] Start: 03-28-2028 Screening for malign ant neoplasm of cervix Cervical Cancer Screening [facility] Start: 03-30-2026 Urine microalbumin profile [facility] Start: 07-09-2025 Anxiety Screening Anxiety Screening [facility] Start: 07-09-2025 Covid-19 Vaccine () Covid-19 Vaccine () [facility] Comment on above: Postponed from 06/08 (Declined at this time) Start: 07-09-2025 Depression Screening Depression Scre ening [facility] Start: 06-08-2025 Influenza vaccination [facility] Start: 05-24-2025 Screening for malign ant neoplasm of breast Mammogram Screening [facility] Start: 04-15-2025 End: 04-15-2025 Patient encounter procedure 04/15/2025 6:00 PM EDT Office Visit [facility] [place] [address] [place] [address] PodBeulah murphy APRN.TIRE REGROOVING MACHINE OPERATOR [address] [place] [address] Physical [facility] [place] Comment on above: Physical Start: 04-15-2025 End: 07-15-2025 CBC W Auto Differential panel - Blood COMPLETE BLOOD COUNT AND DIFFERENTIAL Lab Routine Annual physical exam Expected: 04/15/2025, Expires: 07/15/2025 [facility] Comment on above: Expected: 04/15/2025 , Expires: 07/15/2025 Start: 04-15-2025 End: 07-15-2025 Comprehensive metabolic 2000 panel - Serum or Plasma COMPREHENSIVE METABOLIC PANEL Lab Routine Annual physical exam Expected: 04/15/2025, Expires: 07/15/2025 [facility] Comment on above: Expected: 04/15/2025 , Expires: 07/15/2025 Start: 04-15-2025 End: 07-15-2025 Lipid 1996 panel - Serum or Plasma LIPID PANEL, FASTING Lab Routine Annual physical exam Expected: 04/15/2025, Expires: 07/15/2025 [facility] Work Phone: Comment on above: Expected: 04/15/2025 , Expires: 07/15/2025 Start: 04-06-2025 Influenza vaccination Influenza Vacc ine (#1) [facility] Comment on above: Postponed from 06/08 (Declined at this time) Start: 03-15-2025 HPV TESTING HPV TESTING [facility] Start: 03-15-2025 PAP TESTING PAP TESTING [facility] Start: 07-09-2024 End: 07-09-2024 Patient encounter procedure 07/09/2024 5:00 PM EDT Office Visit [facility] [place] [address] [place] [address] PodBeulah murphy APRN.TIRE REGROOVING MACHINE OPERATOR [address] [facility] [place] [address] physical [facility] [place] Comment on above: physical Start: 07-09-2024 End: 10-08-2024 Comprehensive metabolic 1999 panel - Serum or Plasma COMPREHENSIVE METABOLIC PANEL Lab Routine Annual wellness visit Expected: 07/09/2024, Expires: 10/08/2024 [facility] Comment on above: Expected: 07/09/2024 , Expires: 10/08/2024 Start: 07-09-2024 End: 10-08-2024 Lipid 1996 panel - Serum or Plasma LIPID PANEL BASIC Lab Routine Annual wellness visit Expected: 07/09/2024, Expires: 10/08/2024 [facility] Work Phone: Comment on above: Expected: 07/09/2024 , Expires: 10/08/2024 Start: 06-13-2024 COVID-19 VACCINE (3 - Pfizer series) COVID-19 VACCINE (3 - Pfizer series) [facility] Comment on above: Postponed from 10/21 (Declined at this time) Start: 06-13-2024 HEPATITIS C SCREENING HEPATITIS C [facility] Comment on above: Postponed from 04/07 (Declined at this time) Start: 06-13-2024 HIV SCREENING HIV SCREENING [facility] Comment on above: Postponed from 04/07 (Declined at this time) Start: 06-08-2024 Covid-19 Vaccine ( season) Covid-19 Vaccine ( season) [facility] Start: 06-08-2024 Influenza vaccination Influenza Vacc ine (#1) [facility] Start: 05-14-2024 Mammography MAMMOGRAM [facility] Start: 05-14-2024 Screening for malign ant neoplasm of breast Mammogram Screening [facility] Start: 04-06-2024 Influenza vaccination INFLUENZA (#1) [facility] Comment on above: Postponed from 06/08 (Declined at this time) Start: 06-13-2023 End: 08-13-2023 Comprehensive metabolic 2000 panel - Serum or Plasma COMP METABOLIC PANEL Lab Routine Annual physical exam Expected: 06/13/2023, Expires: 08/13/2023 [facility] Work Phone: Comment on above: Expected: 06/13/2023 , Expires: 08/13/2023 Start: 06-13-2023 End: 08-13-2023 Lipid 1996 panel - Serum or Plasma LIPID PANEL BASIC Lab Routine Annual physical exam Screening for hyperlipidemia Expected: 06/13/2023, Expires: 08/13/2023 [facility] Work Phone: Comment on above: Expected: 06/13/2023 , Expires: 08/13/2023 Start: 06-08-2023 Influenza vaccination INFLUENZA (Sea son Ended) [facility] Start: 06-07-2023 Adult depression screening assessment DEPRESSION SCREENING [facility] Start: 05-22-2023 Mammography MAMMOGRAM [facility] Start: 03-28-2023 Liquid based cervica l cytology screening [facility] Start: 10-08-2022 DEPRESSION ASSESSMENT DEPRESSION ASS ESSMENT [facility] Start: 09-08-2022 End: 11-08-2022 Comprehensive metabolic 2000 panel - Serum or Plasma COMP METABOLIC PANEL Lab Routine Elevated liver enzymes Expected: 09/08/2022, Expires: 11/08/2022 [facility] Work Phone: Comment on above: Expected: 09/08/2022 , Expires: 11/08/2022 Start: 06-16-2022 End: 08-16-2022 PAIN PANEL, UR QUANT [facility] Work Phone: Comment on above: Expected: 06/16/2022 , Expires: 08/16/2022 Start: 06-16-2022 End: 08-16-2022 TOX SCREEN ROUT UR [facility] Work Phone: Comment on above: Expected: 06/16/2022 , Expires: 08/16/2022 Start: 06-08-2022 Influenza vaccination INFLUENZA (#1) [facility] Start: 06-07-2022 End: 08-07-2022 Comprehensive metabolic 2000 panel - Serum or Plasma COMP METABOLIC PANEL Lab Routine Annual physical exam Expected: 06/07/2022, Expires: 08/07/2022 [facility] Work Phone: Comment on above: Expected: 06/07/2022 , Expires: 08/07/2022 Start: 08-31-2022 COVID-19 VACCINE (#1) COVID-19 VACCI NE (#1) [facility] Comment on above: Postponed from 10/08 (Declined at this time) Start: 06-07-2022 HEPATITIS C SCREENING HEPATITIS C [facility] Comment on above: Postponed from 04/07 (Declined at this time) Start: 06-07-2022 HIV SCREENING HIV SCREENING [facility] Comment on above: Postponed from 04/07 (Declined at this time) Start: 06-07-2022 End: 08-07-2022 Lipid 1996 panel - Serum or Plasma LIPID PANEL BASIC Lab Routine Annual physical exam Expected: 06/07/2022, Expires: 08/07/2022 [facility] Work Phone: Comment on above: Expected: 06/07/2022 , Expires: 08/07/2022 Start: 2022 Mammography MAMMOGRAM [facility] Start: 01-24-2022 COVID-19 VACCINE (3 - Booster for Pfizer series) COVID-19 VACCINE (3 - Booster for Pfizer series) [facility] Start: 10-21-2021 COVID-19 VACCINE (3 - Booster for Pfizer series) COVID-19 VACCINE (3 - Booster for Pfizer series) [facility] Start: 10-08-2021 DEPRESSION ASSESSMENT DEPRESSION ASS ESSMENT [facility] Start: 03-30-2017 Adult depression screening assessment DEPRESSION SCREENING [facility] Start: 2001 Hepatitis B Vaccine (1 of 3 - 19+ 3-dose series) Hepatitis B Vaccine (1 of 3 - 19+ 3-dose series) [facility] Start: 2000 Anxiety Screening Anxiety Screening [facility] Start: 2000 Depression Screening Depression Scre ening [facility] Start: 2000 HEPATITIS C SCREENING HEPATITIS C [facility] Start: 2000 Hepatitis C screening Hepatitis C [facility] Start: 2000 HIV SCREENING HIV SCREENING [facility] Start: 2000 HIV screening HIV Screening [facility] Start: 1982 HEPATITIS B (1 of 3 - 3-dose series) HEPATITIS B (1 of 3 - 3-dose series) [facility] End: 10-11-2025 DBT Breast - bilateral screening [facility] Routine Encounter for screening mammogram for breast cancer 1 Occurrences starting 06/18/2024 until 07/18/2025 [facility] Work Phone: Comment on above: 1 Occurrences starti ng 06/18/2024 until 07/18/2025 MG Breast - bilatera l Screening [facility] MG Breast - bilatera l Screening [facility] PAIN PANEL, UR QUANT PAIN PANEL, UR QUANT Lab Routine Obesity, Class II, BMI 35-39.9 Encounter for medication monitoring 06/16/2022 8:34 AM EDT [facility] Work Phone: Path report.final Dx Spec [facility] End: 06-16-2023 Screening mammography bi 2-view breast inc cad [facility] Radiology Routine Encounter for screening mammogram for breast cancer 1 Occurrences starting 05/17/2022 until 06/16/2023 [facility] Work Phone: Comment on above: 1 Occurrences starti ng 05/17/2022 until 06/16/2023 SPECIMEN VALIDITY, URINE SPECIMEN VALIDITY, URINE Lab Routine Obesity, Class II, BMI 35-39.9 Encounter for medication monitoring 06/16/2022 8:34 AM EDT [facility] Work Phone: [facility] Immunizations Immunization Date Immunization Notes Care Provider Renee almazan 08-14-2020 influenza, injectabl e, quadrivalent, contains preservative Beulah Jane GUARD IMMIGRATION.TIRE REGROOVING MACHINE OPERATOR Work Phone: [facility] Work Phone: 08-14-2020 influenza virus vaccine, unspecified formulation Abena Cheng MD Work Phone: [facility] 03-30-2016 tetanus toxoid, reduced diphtheria toxoid, and acellular pertussis vaccine, adsorbed Beulah Podkatherine GUARD IMMIGRATION.TIRE REGROOVING MACHINE OPERATOR Work Phone: [facility] Work Phone: Payers Date Payer Category Payer Self-pay [id number] 2022 Private Health Insurance [id number] 2022 Private Health Insurance [id number] 2019 Unknown [employer]M BLUE CARD PPO OOS [id number] 2019-Present [phone] [address] [place] [address] PPO [id number] 2008 Private Health Insurance [id number] Unknown [id number] Unknown [id number] Unknown [id number] Social History Date Type Detail Facility Start: 06-16-2011 End: 07-09-2024 Tobacco smoking status NHIS Ex-smoker [facility] Work Phone: Start: 10-08-1997 End: 10-08-1999 History of tobacco use Current smoker [facility] Work Phone: Start: 10-08-1997 End: 10-08-1999 History of tobacco use Cigarette Smoker [facility] Work Phone: Start: 06-16-2011 End: 07-09-2024 Tobacco use and exposure Smokeless tobacco non-user [facility] Work Phone: Start: 06-07-2021 End: 04-15-2025 Alcohol intake Current drinker of alcohol (finding) [facility] Start: 06-05-2021 History SDOH Alcohol Frequency 3 [facility] Start: 06-05-2021 End: 06-01-2022 History SDOH Alcohol Std Drinks 2 [facility] Start: 10-12-2011 History SDOH Alcohol Comment socially [facility] Start: 06-05-2021 History SDOH Social Connections Phone 5 [facility] Start: 05-17-2020 End: 06-01-2022 History SDOH Social Connections Meetings 1 [facility] Start: 06-05-2021 History SDOH Physica l Activity MPS 4 [facility] Start: 05-17-2020 Education 17 [facility] Start: 1980 Sex Assigned At Not on file [facility] Start: 03-27-2022 End: 03-28-2023 Tobacco smoking status NHIS Unknown if ever smoked [facility] Start: 1982 Sex Assigned At Female [facility] Start: 06-07-2022 Tobacco Comment Only smoked a half a pack about every three weeks. Quit around the year 1999. [facility] Start: 06-05-2021 End: 06-13-2023 History of Social function [facility] Start: 06-05-2021 End: 06-13-2023 Social connection and isolation panel [facility] Do you belong to any clubs or organizations such as tenriism groups, unions, fraternal or athletic groups, or school groups? No [facility] Attends Club or Organization Meetings Not on file [facility] Are you now , , , , never or living with a partner? [facility] How often to you hav e a drink containing alcohol? 2-4 times a month [facility] How many standard dr inks containing alcohol do you have on a typical day? 3 or 4 [facility] How often do you hav e 6 or more drinks on 1 occasion? Less than monthly [facility] Do you feel stress - tense, restless, nervous, or anxious, or unable to sleep at night because your mind is troubled all the time - these days [OSQ] Not at all [facility] (I/We) worried jon er (my/our) food would run out before (I/we) got money to buy more. Never true [facility] How often to you hav e a drink containing alcohol? Monthly or less [facility] How many standard dr inks containing alcohol do you have on a typical day? 1 or 2 [facility] Start: 03-28-2023 Tobacco smoking stat us NHIS Never smoked tobacco (finding) [facility] Functional Status Date Assessment Result Facility 01-13-2015 Are you deaf, or do you have serious difficulty hearing No 01/13/2015 9:25 AM EDT Janell Qureshi LPN No [facility] 01-13-2015 Are you blind, or do you have serious difficulty seeing, even when wearing glasses No 01/13/2015 9:25 AM EDT Janell Qureshi LPN No [facility] 01-13-2015 Do you have serious difficulty walking or climbing stairs No 01/13/2015 9:25 AM EDT Janell Qureshi LPN No [facility] 01-13-2015 Do you have difficul ty dressing or bathing No 01/13/2015 9:25 AM EDT Janell Qureshi LPN No [facility] 01-13-2015 Because of a physica l, mental, or emotional condition, do you have difficulty doing errands alone such as visiting a physician's office or shopping No 01/13/2015 9:25 AM EDT Janell Qureshi LPN No [facility] Mental Status Date Assessment Result Facility 01-13-2015 Because of a physica l, mental, or emotional condition, do you have serious difficulty concentrating, remembering, or making decisions No 01/13/2015 9:25 AM EDT Janell Qureshi LPN No [facility] Clinical Notes 03-30-2016 to 04-17-2025 Telephone Encounter - Ana Das MA - 04/17/2025 1:51 PM EDTTelephone Encounter - Ana Das MA - 04/17/2025 1:51 PM EDTPBeulah jaimes APRN.TIRE REGROOVING MACHINE OPERATOR - 04/15/2025 6:04 PM EDT Note Date & Type Note Facility 04-17-2025 Telephone encount er Note Patient informed and verbalized understanding. Ana Das MA [facility] 04-17-2025 Miscellaneous Notes Formattin g of this note might be different from the original. Patient informed and verbalized understanding. Ana Das MA ----- Message from Beulah Jane APRN.CNP sent at 04/17/2025 6:44 AM EDT ----- LDL ( bad cholesterol) is mildly elevated. Recommend low saturated fat diet and aim for at least 150 minutes of exercise per week. The rest of her blood work is in acceptable ranges. Beulah Jane APRN.CNP documented in this encounter [facility] 04-17-2025 Telephone encount er Note ----- Message from Beulah Jane APRN.CNP sent at 04/17/2025 6:44 AM EDT ----- LDL ( bad cholesterol) is mildly elevated. Recommend low saturated fat diet and aim for at least 150 minutes of exercise per week. The rest of her blood work is in acceptable ranges. Beulah Jane APRN.CNP [facility] 04-15-2025 Note HNO ID: [id number] Author: BEULAH JANE APRN.CNP Service: ? Author Type: Nurse Practitioner Type: Progress Notes Filed: 04/15/2025 18:17 Note Text: 04/15/2025 Patient presents with: Physical Recording using [email or web address] software for draft documentation of the visit was discussed with the patient/authorized cash application representative; all questions welcomed and answered. Patient/authorized cash application representative agreed to proceed SUBJECTIVE: This is a 45 year old that is here today for Above Complaints. Annual Wellness Exam: - No changes since last visit. - Current on all screenings. - Last mammogram in May, with normal results. PAST MEDICAL HISTORY Diagnosis Date COVID-19 virus infection 09/13/2020 09/11/2020 Ex-smoker 03/30/2016 Started around 20 yo, Quit around [age] was social smoking NEGATIVE MEDICAL HISTORY PVC (premature ventricular contraction) ALLERGIES Penicillins MEDICATIONS Current Outpatient Medications Medication Sig levonorgestrel (MIRENA) 20 mcg/24 hours (5 yrs) 52 mg IUD 1 Each by INTRAUTERINE route one time only for 1 dose. Started February 2019 No current facility-administered medications for this visit. Medications and allergies reviewed by this provider. SOCIAL HISTORY Social History Tobacco Use Smoking status: Former Current packs/day: 0.00 Types: Cigarettes Start date: 10/08/1997 Quit date: 10/08/1999 Years since quittin.5 Smokeless tobacco: Never Tobacco comments: Only smoked a half a pack about every three weeks. Quit around the year 1999. 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 OBJECTIVE: BP 92/68 Pulse 67 Resp 16 Ht 156.2 cm (5' 1.5) Wt 82.2 kg (181 lb 3.2 oz) LMP 12/13/2016 (Exact Date) SpO2 96% BMI 33.69 kg/m? . Vital signs reviewed by this provider. APPEARANCE Well appearing, alert, in no acute distress, well-hydrated, well nourished. EYES PERRLA, conjunctiva and sclera normal. EARS External ears normal, canals clear NECK Supple, no adenopathy; thyroid symmetric, normal size, no bruits HEART RRR with normal S1 and S2, no murmurs, no gallops, no JVD appreciated LUNG clear to auscultation. No wheezes, rhonchi or rales ABDOMEN bowel sounds normoactive, no bruits, soft, non-tender, non-distended EXTREMITIES Extremities normal, No deformities, No skin discoloration, and No edema SKIN Skin color, texture, turgor normal, no suspicious rashes or lesions to exposed skin 1. Annual physical exam (Z00.00) - No significant changes since last visit. - Patient has Mirena IUD in place. - Mammogram performed in May at the hospital; results were normal.. - Physical examination unremarkable. - Ordered fasting labs; patient instructed to fast for 10-12 hours prior to lab draw. - Patient to schedule next annual physical exam in one year, sooner if needed Prescription instructions reviewed with patient as applicable. Patient advised if symptoms do not improve or if symptoms worsen sooner, to contact their primary care physician. Potential red flag symptoms discussed with the patient. Reviewed appropriate action plan to take if red flag symptoms occur. Patient agreeable to treatment plan. [facility] 04-15-2025 History of Presen t illness Narrative 04/15/2025 Patient presents with: Physical Recording using [email or web address] software for draft documentation of the visit was discussed with the patient/authorized cash application representative; all questions welcomed and answered. Patient/authorized cash application representative agreed to proceed SUBJECTIVE: This is a 45 year old that is here today for Above Complaints. Annual Wellness Exam: - No changes since last visit. - Current on all screenings. - Last mammogram in May, with normal results. PAST MEDICAL HISTORY Diagnosis Date COVID-19 virus infection 09/13/2020 09/11/2020 Ex-smoker 03/30/2016 Started around 20 yo, Quit around [age] was social smoking NEGATIVE MEDICAL HISTORY PVC (premature ventricular contraction) ALLERGIES Penicillins MEDICATIONS Current Outpatient Medications Medication Sig levonorgestrel (MIRENA) 20 mcg/24 hours (5 yrs) 52 mg IUD 1 Each by INTRAUTERINE route one time only for 1 dose. Started February 2019 No current facility-administered medications for this visit. Medications and allergies reviewed by this provider. SOCIAL HISTORY Social History Tobacco Use Smoking status: Former Current packs/day: 0.00 Types: Cigarettes Start date: 10/08/1997 Quit date: 10/08/1999 Years since quittin.5 Smokeless tobacco: Never Tobacco comments: Only smoked a half a pack about every three weeks. Quit around the year 1999. 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 OBJECTIVE: BP 92/68 Pulse 67 Resp 16 Ht 156.2 cm (5' 1.5) Wt 82.2 kg (181 lb 3.2 oz) LMP 12/13/2016 (Exact Date) SpO2 96% BMI 33.69 kg/m . Vital signs reviewed by this provider. APPEARANCE Well appearing, alert, in no acute distress, well-hydrated, well nourished. EYES PERRLA, conjunctiva and sclera normal. EARS External ears normal, canals clear NECK Supple, no adenopathy; thyroid symmetric, normal size, no bruits HEART RRR with normal S1 and S2, no murmurs, no gallops, no JVD appreciated LUNG clear to auscultation. No wheezes, rhonchi or rales ABDOMEN bowel sounds normoactive, no bruits, soft, non-tender, non-distended EXTREMITIES Extremities normal, No deformities, No skin discoloration, and No edema SKIN Skin color, texture, turgor normal, no suspicious rashes or lesions to exposed skin 1. Annual physical exam (Z00.00) - No significant changes since last visit. - Patient has Mirena IUD in place. - Mammogram performed in May at the hospital; results were normal.. - Physical examination unremarkable. - Ordered fasting labs; patient instructed to fast for 10-12 hours prior to lab draw. - Patient to schedule next annual physical exam in one year, sooner if needed Prescription instructions reviewed with patient as applicable. Patient advised if symptoms do not improve or if symptoms worsen sooner, to contact their primary care physician. Potential red flag symptoms discussed with the patient. Reviewed appropriate action plan to take if red flag symptoms occur. Patient agreeable to treatment plan. documented in this encounter [facility] 04-05-2025 Note HNO ID: [id number] Author: MONIK LAZCANO APRN.PRESLEY Service: ? Author Type: Nurse Practitioner Type: Progress Notes Filed: 04/05/2025 13:20 Note Text: Subjective HPI Nontoxic-appearing female presents urgent care chief complaint cough chest congestion. Duration of symptoms 6 days. Associated symptoms listed above. Most prominent symptom is cough. Has also developed worsening sinus pressure. OTC medications none. Unknown sick contacts. Denies any high fevers. No chest pain or hemoptysis. No pleuritic pain. Denies any nausea vomiting or significant abdominal pain. Is not is not breast-feeding. Past medical history prescription medications allergies reviewed. .Patient presents with: Head Congestion: Cough, chest congestion, low fever x6 days PAST MEDICAL HISTORY Diagnosis Date COVID-19 virus infection 09/13/2020 09/11/2020 Ex-smoker 03/30/2016 Started around 20 yo, Quit around -23 was social smoking NEGATIVE MEDICAL HISTORY PVC (premature ventricular contraction) PAST SURGICAL HISTORY Procedure Laterality Date DILATION AND CURETTAGE DXAND/THER NONOBSTETRIC Dilation AND curettage PAST SURGICAL HISTORY OF 1987 +/- removal of tonsils PAST SURGICAL HISTORY OF 1993 nose surgery ALLERGIES Penicillins MEDICATIONS levonorgestrel (MIRENA) 20 mcg/24 hours (5 yrs) 52 mg IUD 1 Each by INTRAUTERINE route one time only for 1 dose. Started February 2019 FAMILY HISTORY Problem Relation Age of Onset other (osteopenia) Mother Alcohol/Drug Father ALCOHOHOL Prostate Cancer Father Osteoporosis Maternal Grandmother Coronary Artery Disease Paternal Grandfather mid 60's Breast Cancer Paternal Aunt Diagnosed at age 49 Heart Other paternal great grandparents. Breast Cancer Other PGGM - unsure of age Social History Tobacco Use Smoking status: Former Current packs/day: 0.00 Types: Cigarettes Start date: 10/08/1997 Quit date: 10/08/1999 Years since quittin.5 Smokeless tobacco: Never Tobacco comments: Only smoked a half a pack about every three weeks. Quit around the year 1999. Substance Use Topics Alcohol use: Yes Comment: Socially Drug use: No BP 99/68 Pulse 79 Temp 37.4 ?C (99.3 ?F) Resp 18 Wt 82.3 kg (181 lb 7 oz) LMP 12/13/2016 (Exact Date) SpO2 99% BMI 34.17 kg/m? Review of Systems Constitutional: Positive for fever and malaise/fatigue. Negative for chills. HENT: Positive for congestion, sinus pain and sore throat. Negative for ear discharge and ear pain. Eyes: Negative for blurred vision, pain, discharge and redness. Respiratory: Positive for cough and sputum production. Negative for hemoptysis, shortness of breath, wheezing and stridor. Cardiovascular: Negative for chest pain. Gastrointestinal: Negative for abdominal pain, diarrhea, nausea and vomiting. Musculoskeletal: Positive for myalgias. Skin: Negative for itching and rash. Neurological: Positive for headaches. Negative for dizziness. Objective Physical Exam Constitutional: General: She is not in acute distress. Appearance: She is not diaphoretic. HENT: Head: Normocephalic. Jaw: No trismus, tenderness, swelling or pain on movement. Nose: Congestion present. Right Sinus: Maxillary sinus tenderness present. Left Sinus: Maxillary sinus tenderness present. Mouth/Throat: Mouth: Mucous membranes are moist. Pharynx: Oropharynx is clear. Uvula midline. No pharyngeal swelling, oropharyngeal exudate, posterior oropharyngeal erythema or uvula swelling. Eyes: Conjunctiva/sclera: Conjunctivae normal. Pupils: Pupils are equal, round, and reactive to light. Cardiovascular: Rate and Rhythm: Normal rate and regular rhythm. Heart sounds: Normal heart sounds. Pulmonary: Effort: Pulmonary effort is normal. No tachypnea, accessory muscle usage or respiratory distress. Breath sounds: No stridor. Rhonchi present. No wheezing or rales. Abdominal: General: There is no distension. Palpations: Abdomen is soft. Tenderness: There is no abdominal tenderness. There is no guarding or rebound. Musculoskeletal: Cervical back: Normal range of motion and neck supple. No edema, erythema, rigidity or tenderness. No pain with movement. Normal range of motion. Lymphadenopathy: Cervical: No cervical adenopathy. Skin: General: Skin is warm and dry. Neurological: Mental Status: She is alert and oriented to person, place, and time. ASSESSMENT/PLAN: 1. URI with cough and congestion - ICD9: 465.9, ICD10: J06.9 Diagnosis URI and cough congestion. Suspicious secondary bacterial infection with 5 days of lung sounds. Placed on doxycycline. Cough suppressant as needed. Red flags reevaluation discussed Patient was educated on supportive therapies. Patient will follow up with primary care provider as needed. Patient was instructed to immediately proceed to emergency room for any new, worsening, or symptoms lasting longer than anticipated. The patient's (more content not included)... [facility] 04-05-2025 History of Presen t illness Narrative Subjective HPI Nontoxic-appearing female presents urgent care chief complaint cough chest congestion. Duration of symptoms 6 days. Associated symptoms listed above. Most prominent symptom is cough. Has also developed worsening sinus pressure. OTC medications none. Unknown sick contacts. Denies any high fevers. No chest pain or hemoptysis. No pleuritic pain. Denies any nausea vomiting or significant abdominal pain. Is not is not breast-feeding. Past medical history prescription medications allergies reviewed. .Patient presents with: Head Congestion: Cough, chest congestion, low fever x6 days PAST MEDICAL HISTORY Diagnosis Date COVID-19 virus infection 09/13/2020 09/11/2020 Ex-smoker 03/30/2016 Started around 20 yo, Quit around -23 was social smoking NEGATIVE MEDICAL HISTORY PVC (premature ventricular contraction) PAST SURGICAL HISTORY Procedure Laterality Date DILATION & CURETTAGE DX&/THER NONOBSTETRIC Dilation & curettage PAST SURGICAL HISTORY OF 1987 +/- removal of tonsils PAST SURGICAL HISTORY OF 1993 nose surgery ALLERGIES Penicillins MEDICATIONS levonorgestrel (MIRENA) 20 mcg/24 hours (5 yrs) 52 mg IUD 1 Each by INTRAUTERINE route one time only for 1 dose. Started February 2019 FAMILY HISTORY Problem Relation Age of Onset other (osteopenia) Mother Alcohol/Drug Father ALCOHOHOL Prostate Cancer Father Osteoporosis Maternal Grandmother Coronary Artery Disease Paternal Grandfather mid 60's Breast Cancer Paternal Aunt Diagnosed at age 49 Heart Other paternal great grandparents. Breast Cancer Other PGGM - unsure of age Social History Tobacco Use Smoking status: Former Current packs/day: 0.00 Types: Cigarettes Start date: 10/08/1997 Quit date: 10/08/1999 Years since quittin.5 Smokeless tobacco: Never Tobacco comments: Only smoked a half a pack about every three weeks. Quit around the year 1999. Substance Use Topics Alcohol use: Yes Comment: Socially Drug use: No BP 99/68 Pulse 79 Temp 37.4 C (99.3 F) Resp 18 Wt 82.3 kg (181 lb 7 oz) LMP 12/13/2016 (Exact Date) SpO2 99% BMI 34.17 kg/m Review of Systems Constitutional: Positive for fever and malaise/fatigue. Negative for chills. HENT: Positive for congestion, sinus pain and sore throat. Negative for ear discharge and ear pain. Eyes: Negative for blurred vision, pain, discharge and redness. Respiratory: Positive for cough and sputum production. Negative for hemoptysis, shortness of breath, wheezing and stridor. Cardiovascular: Negative for chest pain. Gastrointestinal: Negative for abdominal pain, diarrhea, nausea and vomiting. Musculoskeletal: Positive for myalgias. Skin: Negative for itching and rash. Neurological: Positive for headaches. Negative for dizziness. Objective Physical Exam Constitutional: General: She is not in acute distress. Appearance: She is not diaphoretic. HENT: Head: Normocephalic. Jaw: No trismus, tenderness, swelling or pain on movement. Nose: Congestion present. Right Sinus: Maxillary sinus tenderness present. Left Sinus: Maxillary sinus tenderness present. Mouth/Throat: Mouth: Mucous membranes are moist. Pharynx: Oropharynx is clear. Uvula midline. No pharyngeal swelling, oropharyngeal exudate, posterior oropharyngeal erythema or uvula swelling. Eyes: Conjunctiva/sclera: Conjunctivae normal. Pupils: Pupils are equal, round, and reactive to light. Cardiovascular: Rate and Rhythm: Normal rate and regular rhythm. Heart sounds: Normal heart sounds. Pulmonary: Effort: Pulmonary effort is normal. No tachypnea, accessory muscle usage or respiratory distress. Breath sounds: No stridor. Rhonchi present. No wheezing or rales. Abdominal: General: There is no distension. Palpations: Abdomen is soft. Tenderness: There is no abdominal tenderness. There is no guarding or rebound. Musculoskeletal: Cervical back: Normal range of motion and neck supple. No edema, erythema, rigidity or tenderness. No pain with movement. Normal range of motion. Lymphadenopathy: Cervical: No cervical adenopathy. Skin: General: Skin is warm and dry. Neurological: Mental Status: She is alert and oriented to person, place, and time. ASSESSMENT/PLAN: 1. URI with cough and congestion - ICD9: 465.9, ICD10: J06.9 Diagnosis URI and cough congestion. Suspicious secondary bacterial infection with 5 days of lung sounds. Placed on doxycycline. Cough suppressant as needed. Red flags reevaluation discussed Patient was educated on supportive therapies. Patient will follow up with primary care provider as needed. Patient was instructed to immediately proceed to emergency room for any new, worsening, or symptoms lasting longer than anticipated. The patient's clinical presentation is otherwise unremarkable at this time. Based on exam and clinical finding, the patient is stable for discharge. Plan of care was discussed with patient. Patient verbalizes understanding and agrees to plan of care. This note was generated using [employer] software. It may contain errors in wording, punctuation, or spelling. Monik Lazcano APRN.PRESLEY documented in this encounter [facility] 01-26-2025 Evaluation note Diagnosis Onset Date Resolution Remove/insert IUD noneactive January 072024 10:55am [facility] Work Phone: [phone]) 418-167010-02-2024 History of Present illness Narrative* Beulah Jane APRN.CNP - 07/09/2024 5:00 PM EDT 07/09/2024 Patient presents with: Physical SUBJECTIVE: This is a 44 year old that is here today for Above Complaints. Since last office visit has been in good health without ER visits or hospitalizations. No concerns today Eats Low carb and low sugar diet. Tries to walk a couple of times a week. PAST MEDICAL HISTORY Diagnosis Date COVID-19 virus infection 09/13/2020 09/11/2020 Ex-smoker 03/30/2016 Started around 20 yo, Quit around - was social smoking NEGATIVE MEDICAL HISTORY PVC (premature ventricular contraction) ALLERGIES Penicillins MEDICATIONS Current Outpatient Medications Medication Sig levonorgestrel (MIRENA) 20 mcg/24 hours (5 yrs) 52 mg IUD 1 Each by INTRAUTERINE route one time only for 1 dose. Started February 2019 No current facility-administered medications for this visit. Medications and allergies reviewed by this provider. SOCIAL HISTORY Social History Tobacco Use Smoking status: Former Current packs/day: 0.00 Types: Cigarettes Start date: 10/08/1997 Quit date: 10/08/1999 Years since quittin.7 Smokeless tobacco: Never Tobacco comments: Only smoked a half a pack about every three weeks. Quit around the year 1999. 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 OBJECTIVE: BP 104/78 Pulse 68 Resp 16 Ht 155.2 cm (5' 1.1) Wt 92.1 kg (203 lb 0.7 oz) LMP 12/13/2016 (Exact Date) SpO2 98% BMI 38.24 kg/m . Vital signs reviewed by this provider. APPEARANCE Well appearing, alert, in no acute distress, well-hydrated, well nourished. EYES conjunctiva and sclera normal. EARS External ears normal, canals clear NECK Supple, no adenopathy; thyroid symmetric, normal size, no bruits HEART RRR with normal S1 and S2, no murmurs, no gallops, no JVD appreciated LUNG clear to auscultation. No wheezes, rhonchi or rales ABDOMEN bowel sounds normoactive, no bruits, soft, non-tender, non-distended EXTREMITIES Extremities normal, No deformities, No skin discoloration, and No edema SKIN Skin color, texture, turgor normal, no suspicious rashes or lesions to exposed skin Latest Ref Rng 06/14/2023 Protein, Total 6.3 - 8.0 g/dL 6.0 (L) Albumin 3.9 - 4.9 g/dL 3.9 Calcium 8.5 - 10.2 mg/dL 8.7 Bilirubin, Total 0.2 - 1.3 mg/dL 0.4 Alkaline Phosphatase 34 - 123 U/L 67 AST 13 - 35 U/L 20 ALT 7 - 38 U/L 14 Glucose 74 - 99 mg/dL 87 BUN 7 - 21 mg/dL 12 Creatinine 0.58 - 0.96 mg/dL 0.66 Sodium 136 - 144 mmol/L 140 Potassium 3.7 - 5.1 mmol/L 4.4 Chloride 97 - 105 mmol/L 107 (H) CO2 22 - 30 mmol/L 24 Anion Gap 9 - 18 mmol/L 9 eGFR >=60 mL/min/1.73m 113 Cholesterol, Total <200 mg/dL 176 Triglyceride <150 mg/dL 39 HDL Cholesterol >39 mg/dL 61 Non HDL Cholesterol <130 mg/dL 115 Fasting Time hrs 10 VLDL Cholesterol <30 mg/dL 8 TC:HDL Ratio <5.10 2.89 LDL Cholesterol <100 mg/dL 107 (H) LDL:HDL Ratio <2.54 1.75 Legend: (L) Low (H) High Hepatitis C Screening Never done HIV Screening Never done Hepatitis B Vaccine(1 of 3 - 19+ 3-dose series) Never done Influenza Vaccine(1) due on 04/06/2025 Covid-19 Vaccine( season) due on 07/09/2025 Mammogram Screening due on 05/24/2025 Depression Screening due on 07/09/2025 Anxiety Screening due on 07/09/2025 DTaP,Tdap,Td Vaccine(2 - Td or Tdap) due on 03/30/2026 Cervical Cancer Screening due on 03/28/2028 HPV Vaccine Aged Out ASSESSMENT/PLAN: 1. Annual wellness visit - ICD9: V70.0, ICD10: Z00.00 (primary diagnosis) - Counseled on healthy diet and regular exercise - Discussed need and benefit for weight loss. BMI 38.24 kg/(m^2) - Follow up for annual exam in one year - LIPID PANEL BASIC - COMPREHENSIVE METABOLIC PANEL 2. Screening for depression - ICD9: V79.0, ICD10: Z13.31 - DEPRESSION SCREENING 3. Encounter for screening examination for other mental health and behavioral disorders - ICD9: V79.8, ICD10: Z13.39 - ANXIETY SCREENING Beulah Jane APRN.CNP Prescription instructions reviewed with patient as applicable. Patient advised if symptoms do not improve or if symptoms worsen sooner, to contact their primary care physician. Potential red flag symptoms discussed with the patient. Reviewed appropriate action plan to take if red flag symptoms occur. Patient agreeable to treatment plan. [facility] NoteHNO ID: [id number] Author: BEULAH JANE APRN.CNP Service: ? Author Type: Nurse Practitioner Type: Progress Notes Filed: 07/09/2024 17:21 Note Text: 07/09/2024 Patient presents with: Physical SUBJECTIVE: This is a 44 year old that is here today for Above Complaints. Since last office visit has been in good health without ER visits or hospitalizations. No concerns today Eats Low carb and low sugar diet. Tries to walk a couple of times a week. PAST MEDICAL HISTORY Diagnosis Date COVID-19 virus infection 09/13/2020 09/11/2020 Ex-smoker 03/30/2016 Started around 20 yo, Quit around [age] was social smoking NEGATIVE MEDICAL HISTORY PVC (premature ventricular contraction) ALLERGIES Penicillins MEDICATIONS Current Outpatient Medications Medication Sig levonorgestrel (MIRENA) 20 mcg/24 hours (5 yrs) 52 mg IUD 1 Each by INTRAUTERINE route one time only for 1 dose. Started February 2019 No current facility-administered medications for this visit. Medications and allergies reviewed by this provider. SOCIAL HISTORY Social History Tobacco Use Smoking status: Former Current packs/day: 0.00 Types: Cigarettes Start date: 10/08/1997 Quit date: 10/08/1999 Years since quittin.7 Smokeless tobacco: Never Tobacco comments: Only smoked a half a pack about every three weeks. Quit around the year 1999. 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 OBJECTIVE: BP 104/78 Pulse 68 Resp 16 Ht 155.2 cm (5' 1.1) Wt 92.1 kg (203 lb 0.7 oz) LMP 12/13/2016 (Exact Date) SpO2 98% BMI 38.24 kg/m? . Vital signs reviewed by this provider. APPEARANCE Well appearing, alert, in no acute distress, well-hydrated, well nourished. EYES conjunctiva and sclera normal. EARS External ears normal, canals clear NECK Supple, no adenopathy; thyroid symmetric, normal size, no bruits HEART RRR with normal S1 and S2, no murmurs, no gallops, no JVD appreciated LUNG clear to auscultation. No wheezes, rhonchi or rales ABDOMEN bowel sounds normoactive, no bruits, soft, non-tender, non-distended EXTREMITIES Extremities normal, No deformities, No skin discoloration, and No edema SKIN Skin color, texture, turgor normal, no suspicious rashes or lesions to exposed skin Latest Ref Rng 06/14/2023 Protein, Total 6.3 - 8.0 g/dL 6.0 (L) Albumin 3.9 - 4.9 g/dL 3.9 Calcium 8.5 - 10.2 mg/dL 8.7 Bilirubin, Total 0.2 - 1.3 mg/dL 0.4 Alkaline Phosphatase 34 - 123 U/L 67 AST 13 - 35 U/L 20 ALT 7 - 38 U/L 14 Glucose 74 - 99 mg/dL 87 BUN 7 - 21 mg/dL 12 Creatinine 0.58 - 0.96 mg/dL 0.66 Sodium 136 - 144 mmol/L 140 Potassium 3.7 - 5.1 mmol/L 4.4 Chloride 97 - 105 mmol/L 107 (H) CO2 22 - 30 mmol/L 24 Anion Gap 9 - 18 mmol/L 9 eGFR >=60 mL/min/1.73m? 113 Cholesterol, Total <200 mg/dL 176 Triglyceride <150 mg/dL 39 HDL Cholesterol >39 mg/dL 61 Non HDL Cholesterol <130 mg/dL 115 Fasting Time hrs 10 VLDL Cholesterol <30 mg/dL 8 TC:HDL Ratio <5.10 2.89 LDL Cholesterol <100 mg/dL 107 (H) LDL:HDL Ratio <2.54 1.75 Legend: (L) Low (H) High Hepatitis C Screening Never done HIV Screening Never done Hepatitis B Vaccine(1 of 3 - 19+ 3-dose series) Never done Influenza Vaccine(1) due on 04/06/2025 Covid-19 Vaccine(2023- season) due on 07/09/2025 Mammogram Screening due on 05/24/2025 Depression Screening due on 07/09/2025 Anxiety Screening due on 07/09/2025 DTaP,Tdap,Td Vaccine(2 - Td or Tdap) due on 03/30/2026 Cervical Cancer Screening due on 03/28/2028 HPV Vaccine Aged Out ASSESSMENT/PLAN: 1. Annual wellness visit - ICD9: V70.0, ICD10: Z00.00 (primary diagnosis) - Counseled on healthy diet and regular exercise - Discussed need and benefit for weight loss. BMI 38.24 kg/(m2) - Follow up for annual exam in one year - LIPID PANEL BASI (more content not included)...[facility] 06-18-2024 NotePatient Outreach (INTMMN) MIRNA CALIX ([id number]) 1980 F Date Time Provider Department 06/18/24 ABENA CHENG INTMMN During your visit today, we recorded the following information about you: Allergies As of Date: 06/18/2024 Noted Allergy Reaction PENICILLINS 08/15/2006 Comments: CHILDHOOD REACTION Date Reviewed: 06/13/2023 Reviewed by: Valerie Alfaro LPN - Fully Assessed Visit Diagnosis:Encounter for screening mammogram for breast cancer [Z12.31] Order(s):[facility] SCREENING W ADEOLA [[id number]] Order #: [id number] FUTURE Prescriptions as of 06/23/2024 - levonorgestrel (MIRENA) 20 mcg/24 hours (5 yrs) 52 mg IUD 1 Each by INTRAUTERINE route one time only for 1 dose. Started February 2019 Problem List As Of Date 06/18/2024 Noted Resolved Supervision of other normal [Z34.80] 10/06/2006 03/14/2011 Routine general medical examination at a health*07/18/2010 10/21/2012 Class: Chronic Routine gynecological examination [Z01.419] 07/18/2010 10/21/2012 Class: Chronic Encounter for gynecological examination without*03/30/2016 11/23/2016 Ex-smoker [Z87.891] 03/30/2016 Encounter for screening for cardiovascular diso*03/30/2016 11/23/2016 Encounter for screening for diabetes mellitus [*03/30/2016 11/23/2016 PVC (premature ventricular contraction) [I49.3] Obesity, Class I, BMI 30-34.9 [E66.9] 05/19/2020 COVID-19 virus infection [U07.1] 09/13/2020 Obesity, Class II, BMI 35-39.9 [E66.9] 06/07/2022 Encounter Status:Closed by DAVID MATOS on 06/23/24[facility] 06-15-2023 Miscellaneous Notes* Telephone Encounter - Thi Almanza Ma - 06/15/2023 9:07 AM EDT Mychart message sent to pt notifying her of results and recommendations below from Provider. If questions to contact the office. Thi Almanza Ma * Telephone Encounter - Thi Almanza Ma - 06/15/2023 9:06 AM EDT ----- Message from Beulah Jane APRN.CNP sent at 06/15/2023 6:46 AM EDT ----- LDL- near optimal. Recommend low saturated fat diet and at least 150 minutes of exercise per week. Protein level mildly decreased. Increase healthy proteins such as baked fish, chicken or turkey. Therest of her blood work is in acceptable ranges. HENRY Gipson APRN.CNP [facility] History of Present illness Narrative* Beulah Jane APRN.CNP - 06/13/2023 4:54 PM EDT 06/13/2023 Patient presents with: Physical SUBJECTIVE: This is a 43 year old that is here today for Above Complaints. Since last office visit has been in good health without ER visits or hospitalizations. No concerns. Eats Low carb and low sugar diet. Tries to walk a couple of times a week. PAST MEDICAL HISTORY Diagnosis Date COVID-19 virus infection 09/13/2020 09/11/2020 Ex-smoker 03/30/2016 Started around 20 yo, Quit around [age] was social smoking NEGATIVE MEDICAL HISTORY PVC (premature ventricular contraction) ALLERGIES Penicillins MEDICATIONS Current Outpatient Medications Medication Sig levonorgestrel (MIRENA) 20 mcg/24 hours (5 yrs) 52 mg IUD 1 Each by INTRAUTERINE route one time only for 1 dose. Started February 2019 No current facility-administered medications for this visit. Medications and allergies reviewed by this provider. SOCIAL HISTORY Social History Tobacco Use Smoking status: Former Years: 2 Types: Cigarettes Quit date: 10/08/1999 Years since quittin.6 Smokeless tobacco: Never Tobacco comments: Only smoked a half a pack about every three weeks. Quit around the year 1999. 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 OBJECTIVE: BP 104/76 Pulse 68 Resp 16 Ht 155.5 cm (5' 1.22) Wt 95 kg (209 lb 6.4 oz) LMP 12/13/2016(Exact Date) SpO2 99% BMI 39.28 kg/m . Waist 42.5 inches. Vital signs reviewed by this provider. APPEARANCE Well appearing, alert, in no acute distress, well-hydrated, well nourished. EYES conjunctiva and sclera normal. EARS External ears normal, canals clear NECK Supple, no adenopathy; thyroid symmetric, normal size, no bruits HEART RRR with normal S1 and S2, no murmurs, no gallops, no JVD appreciated LUNG clear to auscultation. No wheezes, rhonchi or rales EXTREMITIES Extremities normal, No deformities, No skin discoloration, and No edema SKIN Skin color, texture, turgor normal, no suspicious rashes or lesions to exposed skin HEPATITIS B(1 of 3 - 3-dose series) Never done HEPATITIS C SCREENING Never done HIV SCREENING Never done DEPRESSION ASSESSMENT Never done INFLUENZA(1) due on 04/06/2024 COVID-19 VACCINE(3 - Pfizer series) due on 06/13/2024 MAMMOGRAM due on 05/14/2024 DTAP,TDAP,TD(2 - Td or Tdap) due on 03/30/2026 PAP TESTING due on 03/28/2028 HPV TESTING due on 03/28/2028 HPV VACCINE Aged Out ASSESSMENT/PLAN: 1. Annual physical exam - ICD9: V70.0, ICD10: Z00.00 (primary diagnosis) - Counseled on healthy diet and regular exercise - Discussed need and benefit for weight loss. BMI 39.28 kg/(m^2) - Depression screening tool completed and reviewed with patient. Based on score and interview, patient is not at risk for depression and recommended no further intervention at this time. - Follow up for annual exam in one year - LIPID PANEL BASIC - COMP METABOLIC PANEL 2. Screening for hyperlipidemia - ICD9: V77.91, ICD10: Z13.220 - LIPID PANEL BASIC Beulah Jane APRN.TIRE REGROOVING MACHINE OPERATOR Prescription instructions reviewed with patient as applicable. Patient advised if symptoms do not improve or if symptoms worsen sooner, to contact their primary care physician. Potential red flag symptoms discussed with the patient. Reviewed appropriate action plan to take if red flag symptoms occur. Patient agreeable to treatment plan. [facility] NotePap Smear Specimen AdequacyJune 2022 11:54amComment.Satisfactory for evaluation. No endocervical component is identified.[facility] INTER[facility]ACED A#[id number] Health Wadsworth - Rittman Medical CenterComment on above:Satisfactory for evaluation. No endocervical component is identified.03-28-2023 NotePap Smear QC ReviewJune 2022 11:54amComment.Sheri Dumont, Supervisory Senior Quality Assurance Specialist (ASCP)[facility] INTERFACED A#[id number] Health Wadsworth - Rittman Medical CenterComment on above:Sheri Dumont, Supervisory Senior Quality Assurance Specialist (ASCP)01-06-2023 History of Present illness Narrative* Laya Duque APRN.TIRE REGROOVING MACHINE OPERATOR - 01/06/2023 9:52 AM EDT This note was created using [employer]. Subjective Mirna Calix is a 42 year old female. 42 year old female with no Acute onset 4 days ago +right nares +itchy +red Denies fever or chills Denies URI sx. Denies using homeopathic or OTC States a couple years ago, had similar, but states that the physician didn't know what it was She states she was prescribed a medicine, but cannot remember what it was. Denies new skin rash or lotions. Denies new medicines or soaps The history is provided by the patient. No foreign language professor was used. Rash This is a new problem. The current episode started in the past 7 days. The problem is unchanged. Location: right nares. The rash is characterized by redness and itchiness. She was exposed to nothing.Pertinent negatives include no anorexia, congestion, cough, diarrhea, eye pain, facial edema, fatigue, fever, joint pain, nail changes, rhinorrhea, shortness of breath, sore throat or vomiting. Past treatments include nothing. The treatment provided no relief. There is no history of allergies, asthma, eczema or varicella. PAST MEDICAL HISTORY Diagnosis Date COVID-19 virus infection 09/13/2020 09/11/2020 Ex-smoker 03/30/2016 Started around 20 yo, Quit around [age] was social smoking NEGATIVE MEDICAL HISTORY PVC (premature ventricular contraction) PAST SURGICAL HISTORY Procedure Laterality Date DILATION & CURETTAGE DX&/THER NONOBSTETRIC Dilation & curettage PAST SURGICAL HISTORY OF 1987 +/- removal of tonsils PAST SURGICAL HISTORY OF 1993 nose surgery ALLERGIES Penicillins MEDICATIONS fluticasone (FLONASE) 50 mcg/actuation nasal spray Use 2 Sprays in each nostril once daily. Rinse mouth after use. levonorgestrel (MIRENA) 20 mcg/24 hours (5 yrs) 52 mg IUD 1 Each by INTRAUTERINE route one time only for 1 dose. Started February 2019 cephALEXin (KEFLEX) 500 mg capsule Take 1 capsule by mouth four times daily for 5 days. predniSONE (DELTASONE) 10 mg tablet Take 4 tabs daily for 3 days, then 2 tabs daily for 3 days, then 1 tab daily for 3 days with food. mupirocin (BACTROBAN) 2 % cream Apply 1 application to affected area three times daily for 10 days.Location: right nares predniSONE (DELTASONE) 10 mg tablet Take 4 tabs daily for 3 days, then 2 tabs daily for 3 days, then 1 tab daily for 3 days with food. (Patient not taking: Reported on 01/06/2023) FAMILY HISTORY Problem Relation Age of Onset other (osteopenia) Mother Alcohol/Drug Father ALCOHOHOL Prostate Cancer Father Osteoporosis Maternal Grandmother Coronary Artery Disease Paternal Grandfather mid 60's Breast Cancer Paternal Aunt Diagnosed at age 49 Heart Other paternal great grandparents. Breast Cancer Other PGGM - unsure of age Social History Tobacco Use Smoking status: Former Years: 2.00 Types: Cigarettes Quit date: 10/08/1999 Years since quittin.2 Smokeless tobacco: Never Tobacco comments: Only smoked a half a pack about every three weeks. Quit around the year 1999. Substance Use Topics Alcohol use: Yes Comment: Socially Drug use: No Review of Systems Constitutional: Negative for activity change, appetite change, chills, fatigue and fever. HENT: Negative for congestion, rhinorrhea and sore throat. Eyes: Negative for pain. Respiratory: Negative for apnea, cough, choking, chest tightness and shortness of breath. Cardiovascular: Negative for chest pain, palpitations and leg swelling. Gastrointestinal: Negative for anorexia, diarrhea and vomiting. Musculoskeletal: Negative for arthralgias, back pain, gait problem and joint pain. Skin: Positive for rash. Negative for color change, nail changes and pallor. Allergic/Immunologic: Negative for environmental allergies, food allergies and immunocompromised state. Neurological: Negative for dizziness, seizures, facial asymmetry, speech difficulty, light-headedness, numbness and headaches. Hematological: Negative for adenopathy. Does not bruise/bleed easily. Psychiatric/Behavioral: Negative for agitation and behavioral problems. Objective BP 100/68 Pulse 95 Temp 36.9 C (98.5 F) Resp 21 Wt 88 kg (194 lb) LMP 12/13/2016 (Exact Date) SpO2 99% BMI 35.93 kg/m Physical Exam Vitals and nursing note reviewed. Constitutional: General: She is not in acute distress. Appearance: Normal appearance. She is normal weight. She is not ill-appearing, toxic-appearing or diaphoretic. HENT: Head: Normocephalic and atraumatic. Right Ear: Ear canal and external ear normal. Left Ear: Ear canal and external ear normal. Nose: Nose normal. No congestion or rhinorrhea. Mouth/Throat: Mouth: Mucous membranes are moist. Pharynx: No oropharyngeal exudate or posterior oropharyngeal erythema. Eyes: General: Right eye: No discharge. Left eye: No discharge. Extraocular Movements: Extraocular movements intact. Conjunctiva/sclera: Conjunctivae normal. Pupils: Pupils are equal, round, and reactive to light. Cardiovascular: Rate and Rhythm: Normal rate and regular rhythm. Pulses: Normal pulses. Heart sounds: Normal heart sounds. No murmur heard. No friction rub. Pulmonary: Effort: Pulmonary effort is normal. No respiratory distress. Breath sounds: Normal breath sounds. No stridor. No wheezing, rhonchi or rales. Chest: Chest wall: No tenderness. Abdominal: General: Abdomen is flat. There is no distension. Palpations: Abdomen is soft. There is no mass. Tenderness: There is no abdominal tenderness. There is no right CVA tenderness, left CVA tenderness, guarding or rebound. Hernia: No hernia is present. Musculoskeletal: General: No swelling, tenderness, deformity or signs of injury. Normal range of motion. Cervical back: Normal range of motion and neck supple. No rigidity. Right lower leg: No edema. Left lower leg: No edema. Comments: Right nares with erythema. No abscess. No petechia. NO crepitus. No red streaking. No vesicles noted. Lymphadenopathy: Cervical: No cervical adenopathy. Skin: General: Skin is warm and dry. Coloration: Skin is not jaundiced or pale. Findings: No bruising, erythema, lesion or rash. Neurological: General: No focal deficit present. Mental Status: She is alert and oriented to person, place, and time. Cranial Nerves: No cranial nerve deficit. Sensory: No sensory deficit. Motor: No weakness. Coordination: Coordination normal. Gait: Gait normal. Psychiatric: Mood and Affect: Mood normal. Behavior: Behavior normal. Thought Content: Thought content normal. Judgment: Judgment normal. Assessment and Plan ASSESSMENT/PLAN: 1. Rash and nonspecific skin eruption - ICD9: 782.1, ICD10: R21 Right outer nares Dermatitis vs. Infectious process No vesicles No abscess Will cover with topical Mupirocin RX Prednisone and Keflex Follow up with PCP Laya Duque APRN.TIRE REGROOVING MACHINE OPERATOR documented [facility] History of Present illness Narrative* Laya Duque APRN.PRESLEY - 11/15/2022 7:29 PM EST This note was created using [employer]. Subjective Mirna Calix is a 42 year old female. 42 year old female with no PMH presents for illness. Acute onset 5 days ago +sinus pressure +nasal congestion +post nasal drainage. +cough Denies body aches or fatigue Denies fever or chills. Denies taking any OTC medicines The history is provided by the patient. No foreign language professor was used. Sinusitis This is a new problem. The current episode started in the past 7 days. The problem has been gradually worsening since onset. There has been no fever. Her pain is at a severity of 5/10. The pain is mild. Associated symptoms include congestion, coughing, ear pain, headaches, sinus pressure, sneezing and a sore throat. Pertinent negatives include no chills, diaphoresis, hoarse voice, neck pain, shortness of breath or swollen glands. Past treatments include nothing. The treatment provided no relief. PAST MEDICAL HISTORY Diagnosis Date COVID-19 virus infection 09/13/2020 09/11/2020 Ex-smoker 03/30/2016 Started around 20 yo, Quit around [age] was social smoking NEGATIVE MEDICAL HISTORY PVC (premature ventricular contraction) PAST SURGICAL HISTORY Procedure Laterality Date DILATION & CURETTAGE DX&/THER NONOBSTETRIC Dilation & curettage PAST SURGICAL HISTORY OF 1987 +/- removal of tonsils PAST SURGICAL HISTORY OF 1993 nose surgery ALLERGIES Penicillins MEDICATIONS levonorgestrel (MIRENA) 20 mcg/24 hours (5 yrs) 52 mg IUD 1 Each by INTRAUTERINE route one time only for 1 dose. Started February 2019 fluticasone (FLONASE) 50 mcg/actuation nasal spray Use 2 Sprays in each nostril once daily. Rinse mouth after use. predniSONE (DELTASONE) 10 mg tablet Take 4 tabs daily for 3 days, then 2 tabs daily for 3 days, then 1 tab daily for 3 days with food. doxycycline monohydrate 100 mg tablet Take 1 tablet by mouth twice daily for 5 days. FAMILY HISTORY Problem Relation Age of Onset other (osteopenia) Mother Alcohol/Drug Father ALCOHOHOL Prostate Cancer Father Osteoporosis Maternal Grandmother Coronary Artery Disease Paternal Grandfather mid 60's Breast Cancer Paternal Aunt Diagnosed at age 49 Heart Other paternal great grandparents. Breast Cancer Other PGGM - unsure of age Social History Tobacco Use Smoking status: Former Years: 2.00 Types: Cigarettes Quit date: 10/08/1999 Years since quittin.1 Smokeless tobacco: Never Tobacco comments: Only smoked a half a pack about every three weeks. Quit around the year 1999. Substance Use Topics Alcohol use: Yes Comment: Socially Drug use: No Review of Systems Constitutional: Negative for chills, diaphoresis and fever. HENT: Positive for congestion, ear pain, postnasal drip, rhinorrhea, sinus pressure, sneezing and sore throat. Negative for hoarse voice. Eyes: Negative for pain, discharge and itching. Respiratory: Positive for cough. Negative for apnea, choking, chest tightness and shortness of breath. Cardiovascular: Negative for chest pain, palpitations and leg swelling. Gastrointestinal: Negative for abdominal pain, diarrhea, nausea and vomiting. Musculoskeletal: Negative for arthralgias, back pain, gait problem and neck pain. Skin: Negative for color change, pallor, rash and wound. Allergic/Immunologic: Negative for environmental allergies, food allergies and immunocompromised state. Neurological: Positive for headaches. Negative for dizziness and facial asymmetry. Hematological: Negative for adenopathy. Does not bruise/bleed easily. Psychiatric/Behavioral: Negative for agitation and behavioral problems. Objective BP 112/72 Pulse 94 Temp 37.3 C (99.2 F) Resp 16 Wt 91.6 kg (202 lb) LMP 12/13/2016 (ExactDate) SpO2 96% BMI 37.41 kg/m Physical Exam Vitals and nursing note reviewed. Constitutional: General: She is not in acute distress. Appearance: Normal appearance. She is normal weight. She is not ill-appearing, toxic-appearing or diaphoretic. HENT: Head: Normocephalic and atraumatic. Comments: +maxillary sinus pressure. Right Ear: Ear canal and external ear normal. Left Ear: Ear canal and external ear normal. Nose: Nose normal. No congestion or rhinorrhea. Mouth/Throat: Mouth: Mucous membranes are moist. Pharynx: No oropharyngeal exudate or posterior oropharyngeal erythema. Eyes: General: Right eye: No discharge. Left eye: No discharge. Extraocular Movements: Extraocular movements intact. Conjunctiva/sclera: Conjunctivae normal. Pupils: Pupils are equal, round, and reactive to light. Cardiovascular: Rate and Rhythm: Normal rate and regular rhythm. Pulses: Normal pulses. Heart sounds: Normal heart sounds. No murmur heard. No friction rub. Pulmonary: Effort: Pulmonary effort is normal. No respiratory distress. Breath sounds: Normal breath sounds. No stridor. No wheezing, rhonchi or rales. Chest: Chest wall: No tenderness. Abdominal: General: Abdomen is flat. There is no distension. Palpations: Abdomen is soft. There is no mass. Tenderness: There is no abdominal tenderness. There is no right CVA tenderness, left CVA tenderness, guarding or rebound. Hernia: No hernia is present. Musculoskeletal: General: No swelling, tenderness, deformity or signs of injury. Normal range of motion. Cervical back: Normal range of motion and neck supple. No rigidity. Right lower leg: No edema. Left lower leg: No edema. Lymphadenopathy: Cervical: No cervical adenopathy. Skin: General: Skin is warm and dry. Coloration: Skin is not jaundiced or pale. Findings: No bruising, erythema, lesion or rash. Neurological: General: No focal deficit present. Mental Status: She is alert and oriented to person, place, and time. Cranial Nerves: No cranial nerve deficit. Sensory: No sensory deficit. Motor: No weakness. Coordination: Coordination normal. Gait: Gait normal. Psychiatric: Mood and Affect: Mood normal. Behavior: Behavior normal. Thought Content: Thought content normal. Judgment: Judgment normal. Assessment and Plan ASSESSMENT/PLAN: 1. Rhinosinusitis - ICD9: 473.9, ICD10: J31.0, J32.9 X 5 days Discussed with patient likely viral at this time - The patient should also be given OTC cough and cold meds as needed, warm salt water gargles, throat lozenges and/or OTC throat spray as needed, nasal saline gtts and suction prn for the first 5-7 days of treatment. - Supportive care with plenty of fluids, rest, and analgesia prn. RX Prednisone and Flonase She was provided a safety net antibiotic of Doxy to fill at day 10 if symptoms persist - Follow up if symptoms persist or worsen. Laya Duque APRN.PRESLEY documented in this encounter[facility]-20-[facility]22 Miscellaneous Notes* Telephone Encounter - Rylie Saenz LPN - 06/27/2022 11:17 AM EDT Insurance stating weight loss drugs are not covered. Pt will have to pay out of pocket. [employer] message sent to pt Heena Saenz LPN * Telephone Encounter - hSantel Paula RN - 06/21/2022 11:51 AM EDT PRIOR AUTHORIZATION Medication for Prior Authorization: phentermine- topiramate ER 3.75-23 mg Insurance Company: [employer] Patient insurance ID number: [id number] Shantel Paula RN documented in this encounterSam[facility]09-14-2022 Miscellaneous Notes* Telephone Encounter - Lilian Restrepo Cma - 06/21/2022 9:16 AM EDT Patient notified and verbalized understanding Lilian Restrepo Cma * Telephone Encounter - Beulah Jane APRN.CNP - 06/21/2022 9:07 AM EDT Please call patient and let her know her urine testing is normal. I have sent over prescription forqsymia. Take one tablet for 14 days. If tolerating will increase so she will need to let me know how she is doing on it. Beulah Jane APRN.CNP PDMP website checked and validated. All prescriptions have been APPROPRIATELY filled. No suspiciousactivity was identified. 06/21/2022 by Beulah Jane APRN.CNP documented in this encounterSam[facility]09-[facility]22 History of Present illness Narrative* Beulah Jane APRN.CNP - 06/16/2022 7:57 AM EDT 06/16/2022 Patient presents with: Discussion: Weight lose medication SUBJECTIVE: This is a 42 year old that is here today for Above Complaints. Insurance won't cover contrave. Patient here to discuss medication insurance will cover which include: Lomaira Phentermine HCl Qsymia Saxenda Xenical Component Latest Ref Rng & Units 06/16/2022 , Urine neg - pos neg Quality Check yes/no Yes PAST MEDICAL HISTORY Diagnosis Date COVID-19 virus infection 09/13/2020 09/11/2020 Ex-smoker 03/30/2016 Started around 20 yo, Quit around [age] was social smoking NEGATIVE MEDICAL HISTORY PVC (premature ventricular contraction) ALLERGIES Penicillins MEDICATIONS Current Outpatient Medications Medication Sig naltrexone-bupropion (CONTRAVE) 8-90 mg ER tablet Week 1: 1 tablet (8 mg naltrexone/90 mg bupropion) once daily. Week 2: 1 tablet twice daily. Week 3: 2 tablets in morning and one tablet in evening. Week 4: 2 tablets twice daily. levonorgestrel (MIRENA) 20 mcg/24 hours (5 yrs) 52 mg IUD 1 Each by INTRAUTERINE route one time only for 1 dose. Started February 2019 No current facility-administered medications for this visit. Medications and allergies reviewed by this provider. SOCIAL HISTORY Social History Tobacco Use Smoking status: Former Years: 2.00 Types: Cigarettes Quit date: 10/08/1999 Years since quittin.7 Smokeless tobacco: Never Tobacco comments: Only smoked a half a pack about every three weeks. Quit around the year 1999. Substance Use Topics Alcohol use: Yes Comment: Socially Drug use: No REVIEW OF SYSTEMS All other reviewed and negative other than HPI. OBJECTIVE: BP 100/72 Pulse 68 Resp 16 Wt 91.6 kg (202 lb) LMP 12/13/2016 (Exact Date) SpO2 100% BMI 37.41 kg/m . Vital signs reviewed by this provider. APPEARANCE Well appearing, alert, in no acute distress, well-hydrated, well nourished. and Overweight EYES conjunctiva and sclera normal. HEART RRR with normal S1 and S2, no murmurs, no gallops, no JVD appreciated LUNG clear to auscultation SKIN Skin color, texture, turgor normal, no suspicious rashes or lesions to exposed skin HEPATITIS B(1 of 3 - 3-dose series) Never done HEPATITIS C SCREENING Never done HIV SCREENING Never done COVID-19 VACCINE(3 - Booster for Pfizer series) due on 01/24/2022 INFLUENZA(1) due on 06/08/2022 MAMMOGRAM due on 05/22/2023 DEPRESSION SCREENING due on 06/07/2023 PAP TESTING due on 03/15/2025 HPV TESTING due on 03/15/2025 DTAP,TDAP,TD(2 - Td or Tdap) due on 03/30/2026 ASSESSMENT/PLAN: 1. Obesity, Class II, BMI 35-39.9 - ICD9: 278.00, ICD10: E66.9 (primary diagnosis) Weight increasing - Behavioral intervention and - Pharmacological intervention - TOX SCREEN ROUT UR - PAIN PANEL, UR QUANT - HCG QUAL UR B/O - PAIN PANEL, UR QUANT - SPECIMEN VALIDITY, URINE - risks and benefits of above medications discussed. Patient would like to try Qsymia. Discussed risks regarding defects with this medication if she were to become . Patient has IUD in place. It is recommend two forms of control are used, patient verbalizes understanding of this. Discussed abuse potential on this medication, verbalizes understanding - controlled substance agreement signed. Will start medication if drug screen normal - continue to eat lower carbohydrate, fat diet and aim for at least 150 minutes of exercise per week - will follow-up in 12 weeks as long as she is tolerating medication, sooner if needed 2. Encounter for medication monitoring - ICD9: V58.83, ICD10: Z51.81 - TOX SCREEN ROUT UR - PAIN PANEL, UR QUANT - HCG QUAL UR B/O - PAIN PANEL, UR QUANT - SPECIMEN VALIDITY, URINE - plan as in #1 Beulah Luciologar, GUARD IMMIGRATION.TIRE REGROOVING MACHINE OPERATOR Prescription instructions reviewed with patient as applicable. Patient advised if symptoms do not improve or if symptoms worsen sooner, to contact their primary care physician. Potential red flag symptoms discussed with the patient. Reviewed appropriate action plan to take if red flag symptoms occur. Patient agreeable to treatment plan. I spent a total of 35 minutes on the date of the service which included preparing to see the patient, [id number] patient care, completing clinical documentation, obtaining and/or reviewing separately obtained history, performing a medically appropriate examination, counseling and educating the pat ient/family/caregiver, and ordering medications, tests, or procedures. documented in this encounterSam[facility]09-07-2022 Miscellaneous Notes* Telephone Encounter - Valerie Alfaro LPN - 06/14/2022 8:42 AM EDT Patient telephoned and made aware of message below. Appointment scheduled for Sunday at 8am. Valerie Alfaro LPN * Telephone Encounter - Beulah Jane APRN.CNP - 06/13/2022 7:26 PM EDT Please schedule appointment with patient so we can discuss medications options for weight loss. Insurance has given us a few options and I need to discuss benefits and risks with her. Beulah Jane APRN.CNP * Telephone Encounter - Rylie Saenz LPN - 06/13/2022 1:03 PM EDT [facility] stating below meds do not require a PA: Lomaira Phentermine HCl Qsymia Saxenda Xenical Please advise if rx can be changed to a preferred. Heena Saenz LPN * Telephone Encounter - Valerie Alfaro LPN - 06/09/2022 11:22 AM EDT Patient notified of current status. Voices understanding. Valerie Alfaro LPN * Telephone Encounter - Beulah Jane APRN.CNP - 06/09/2022 11:13 AM EDT I was off yesterday and I am waiting for the drug cash application representative to contact me. Beulah Jane APRN.[place] * Telephone Encounter - Annette Smith RN - 06/09/2022 11:06 AM EDT Pt called in asking about the PA on her medication. Please call and advise. * Telephone Encounter - Priya Gonzales LPN - 06/08/2022 10:23 AM EDT Electronic PA requested. * Telephone Encounter - Janell Posey LPN - 06/08/2022 8:36 AM EDT Patient called and stated medication (8 mg naltrexone/90 mg bupropion) that was ordered by provideron 06/07/22 requiring prior authorization. Advised patient would forward to prior auth dept to start process. documented in this encounterSam[facility]09-06-2022 Miscellaneous Notes* Telephone Encounter - Janell Posey LPN - 06/13/2022 9:08 AM EDT Per patient's instructions when form was dropped off. Form faxed to number on form, copy made for scanning and original mailed to patient. * Telephone Encounter - Beulah Jane APRN.CNP - 06/09/2022 9:11 PM EDT Preventative Health Screening Form completed. Please make copy for out records. Please fax per patient request and mail original back. Paperwork in my outbox. Beulah Jane APRN.CNP documented in this encounterSam[facility]09-06-2022 Miscellaneous Notes* Telephone Encounter - Janell Posey LPN - 06/13/2022 8:51 AM EDT Phoned patient and updated her with message/result. Patient voiced understanding. * Telephone Encounter - Beulah Jane APRN.CNP - 06/09/2022 8:31 PM EDT Please call patient and let her know mild elevation in LDL ( bad cholesterol). Continue to work on low fat diet and aim for at least 150 minutes of exercise per week. Mild elevation in one liver enzyme. Will continue to monitor. Recheck in three months. Beulah Jane APRN.CNP documented in this encounterSam[facility]08-31-2022 Instructions* Patient Instructions* Beulah Jane APRN.CNP - 06/07/2022 6:17 PM EDT Week 1: 1 tablet (8 mg naltrexone/90 mg bupropion) once daily. Week 2: 1 tablet twice daily. Week 3: 2 tablets in morning and one tablet in evening. Week 4: 2 tablets twice daily. documented in this encounterSam[facility]08-31-2022 History of Present illness Narrative* Beulah Jane APRN.CNP - 06/07/2022 6:06 PM EDT 06/07/2022 Patient presents with: Physical SUBJECTIVE: This is a 42 year old that is here today for Above Complaints. Since last office visit has been in good health without ER visits. Concern today includes weight Struggling with weight. Just started working out at the gym but has been doing home exercise daily.Has tried eating lower carbohydrate, keto and weight watchers with not noticeable weight loss. PHQ2: 0 PAST MEDICAL HISTORY Diagnosis Date COVID-19 virus infection 09/13/2020 09/11/2020 Ex-smoker 03/30/2016 Started around 20 yo, Quit around [age] was social smoking NEGATIVE MEDICAL HISTORY PVC (premature ventricular contraction) ALLERGIES Penicillins MEDICATIONS Current Outpatient Medications Medication Sig levonorgestrel (MIRENA) 20 mcg/24 hours (5 yrs) 52 mg IUD 1 Each by INTRAUTERINE route one time only for 1 dose. Started February 2019 No current facility-administered medications for this visit. Medications and allergies reviewed by this provider. SOCIAL HISTORY Social History Tobacco Use Smoking status: Former Years: 2.00 Types: Cigarettes Quit date: 10/08/1999 Years since quittin.6 Smokeless tobacco: Never Tobacco comments: Only smoked a half a pack about every three weeks. Quit around the year 1999. 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 OBJECTIVE: BP 108/72 Pulse 76 Resp 16 Ht 156.5 cm (5' 1.61) Wt 90.8 kg (200 lb 3.2 oz) LMP 12/13/2016 (Exact Date) SpO2 97% BMI 37.08 kg/m . Vital signs reviewed by this provider. APPEARANCE Well appearing, alert, in no acute distress, well-hydrated, well nourished. and Overweight EYES conjunctiva and sclera normal. EARS External ears normal, canals clear NECK Supple, no adenopathy; thyroid symmetric, normal size, no bruits HEART RRR with normal S1 and S2, no murmurs, no gallops, no JVD appreciated BREAST FEMALE Symmetrical, normal consistency without masses., No dimpling or skin changes, Normal nipples without discharge, and no axillary lymphadenopathy EXTREMITIES Extremities normal, No deformities, No skin discoloration, No edema SKIN Skin color, texture, turgor normal, no suspicious rashes or lesions to exposed skin Component Latest Ref Rng & Units 06/07/2021 Protein, Total 6.3 - 8.0 g/dL 6.6 Albumin 3.9 - 4.9 g/dL 4.2 Calcium 8.5 - 10.2 mg/dL 9.5 Bilirubin, Total 0.2 - 1.3 mg/dL 0.6 Alkaline Phosphatase 34 - 123 U/L 62 AST 13 - 35 U/L 22 Glucose 74 - 99 mg/dL 86 BUN 7 - 21 mg/dL 10 Creatinine 0.58 - 0.96 mg/dL 0.64 Sodium 136 - 144 mmol/L 137 Potassium 3.7 - 5.1 mmol/L 4.5 Chloride 97 - 105 mmol/L 105 CO2 22 - 30 mmol/L 24 Anion Gap 9 - 18 mmol/L 8 (L) ALT 7 - 38 U/L 11 eGFR- >60 eGFR-All Other Races . >60 WBC 3.70 - 11.00 k/uL 7.07 RBC 3.90 - 5.20 m/uL 4.43 Hemoglobin 11.5 - 15.5 g/dL 14.2 Hematocrit 36.0 - 46.0 % 43.0 MCV 80.0 - 100.0 fL 97.1 MCH 26.0 - 34.0 pG 32.1 MCHC 30.5 - 36.0 g/dL 33.0 RDW-CV 11.5 - 15.0 % 11.8 Platelet Count 150 - 400 k/uL 211 MPV 9.0 - 12.7 fL 10.5 Absolute nRBC <0.01 k/uL <0.01 Cholesterol, Total <200 mg/dL 170 Triglyceride <150 mg/dL 48 HDL Cholesterol >39 mg/dL 67 LDL Cholesterol <100 mg/dL 93 Non HDL Cholesterol <130 mg/dL 103 Fasting Time hrs 12 VLDL Cholesterol <30 mg/dL 10 TC:HDL Ratio <5.10 2.54 LDL:HDL Ratio <2.54 1.39 TSH 0.270 - 4.200 uU/mL 1.370 HEPATITIS B(1 of 3 - 3-dose series) Never done DEPRESSION SCREENING due on 03/30/2017 COVID-19 VACCINE(3 - Booster for Pfizer series) due on 01/24/2022 HEPATITIS C SCREENING due on 06/07/2022 HIV SCREENING due on 06/07/2022 INFLUENZA(1) due on 06/08/2022 MAMMOGRAM due on 05/22/2023 PAP TESTING due on 03/15/2025 HPV TESTING due on 03/15/2025 DTAP,TDAP,TD(2 - Td or Tdap) due on 03/30/2026 ASSESSMENT/PLAN: 1. Annual physical exam - ICD9: V70.0, ICD10: Z00.00 (primary diagnosis) - Counseled on healthy diet and regular exercise - Calcium intake with supplements or by diet of 1000 mg/day for under 50, 1200- 1500 mg/day for 50+ - Discussed need and benefit for weight loss. BMI 37.08 kg/(m^2) - Depression screening tool completed and reviewed with patient. Based on score and interview, patient is not at risk for depression and recommended no further intervention at this time. - Follow up for annual exam in one year - LIPID PANEL BASIC - COMP METABOLIC PANEL 2. Obesity, Class II, BMI 35-39.9 - ICD9: 278.00, ICD10: E66.9 Weight increasing - Behavioral and pharmacological intervention - NALTREXONE 8 MG-BUPROPION 90 MG TABLET,EXTENDED RELEASE- common side effects discussed, verbalizes understanding - follow-up in one month, sooner if needed Beulah Podlogar, GUARD IMMIGRATION.TIRE REGROOVING MACHINE OPERATOR Prescription instructions reviewed with patient as applicable. Patient advised if symptoms do not improve or if symptoms worsen sooner, to contact their primary care physician. Potential red flag symptoms discussed with the patient. Reviewed appropriate action plan to take if red flag symptoms occur. Patient agreeable to treatment plan. [facility] of Past illness Narrative* Problem Noted Date Resolved Date Encounter for gynecological examination without abnormal finding 03/30/2016 11/23/2016 Overview: See's [facility] Encounter for screening for cardiovascular disor ders 03/30/2016 11/23/2016 Encounter for screening for diabetes mellitus 11/23/2016 Routine general medical exam ination at a health care facility 07/18/2010 10/21/2012 Overview: 07/18/2010, from Dr. Constantino Routine gynecological examination 07/18/2010 10/21/2012 Overview: [facility], [facility] [place] Supervision of other normal 10/06/2006 03/14/2011 documented as of this encounter (statuses as of 05/22/2022) [facility] of [facility] illness Narrative* Problem Noted Date Resolved Date Encounter for gynecological examination without abnormal finding 03/30/2016 11/23/2016 Overview: See's [facility] Encounter for screening for cardiovascular disor ders 03/30/2016 11/23/2016 Encounter for screening for diabetes mellitus 11/23/2016 Routine general medical exam ination at a health care facility 07/18/2010 10/21/2012 Overview: 07/18/2010, from Dr. Constantino Routine gynecological examination 07/18/2010 10/21/2012 Overview: [facility], [facility] [place] Supervision of other normal 10/06/2006 03/14/2011 documented as of this encounter (statuses as of 06/07/2022) [facility] of [facility] illness Narrative* Problem Noted Date Resolved Date Encounter for gynecological examination without abnormal finding 03/30/2016 11/23/2016 Overview: See[facility] Encounter for screening for cardiovascular disor ders 03/30/2016 11/23/2016 Encounter for screening for diabetes mellitus 11/23/2016 Routine general medical exam ination at a health care facility 07/18/2010 10/21/2012 Overview: 07/18/2010, from Dr. Constantino Routine gynecological examination 07/18/2010 10/21/2012 Overview: [facility], [facility] [place] Supervision of other normal 10/06/2006 03/14/2011 documented as of this encounter (statuses as of 06/14/2022) [facility] illness Narrative* Problem Noted Date Resolved Date Encounter for gynecological examination without abnormal finding 03/30/2016 11/23/2016 Overview: [facility] Encounter for screening for cardiovascular disor ders 03/30/2016 11/23/2016 Encounter for screening for diabetes mellitus 11/23/2016 Routine general medical exam ination at a health care facility 07/18/2010 10/21/2012 Overview: 07/18/2010, from Dr. Constantino Routine gynecological examination 07/18/2010 10/21/2012 Overview: [facility], [facility] [place] Supervision of other normal 10/06/2006 03/14/2011 documented as of this encounter (statuses as of 06/16/2022) [facility] Narrative* Problem Noted Date Resolved Date Encounter for gynecological examination without abnormal finding 03/30/2016 11/23/2016 Overview: See[facility] Encounter for screening for cardiovascular disor ders 03/30/2016 11/23/2016 Encounter for screening for diabetes mellitus 11/23/2016 Routine general medical exam ination at a health care facility 07/18/2010 10/21/2012 Overview: 07/18/2010, from Dr. Constantino Routine gynecological examination 07/18/2010 10/21/2012 Overview: [facility] [place] Supervision of other normal 10/06/2006 03/14/2011 documented as of this encounter (statuses as of 06/21/2022) [facility] Narrative* Problem Noted Date Resolved Date Encounter for gynecological examination without abnormal finding 03/30/2016 11/23/2016 Overview: See's [facility] Encounter for screening for cardiovascular disor ders 03/30/2016 11/23/2016 Encounter for screening for diabetes mellitus 11/23/2016 Routine general medical exam ination at a [facility] care facility 07/18/2010 10/21/2012 Overview: 07/18/2010, from Dr. Constantino Routine gynecological examination 07/18/2010 10/21/2012 Overview: [facility] [place] Supervision of other normal 10/06/2006 03/14/2011 documented as of this encounter (statuses as of 06/27/2022) [facility] Narrative* Problem Noted Date Resolved Date Encounter for gynecological examination without abnormal finding 03/30/2016 11/23/2016 Overview: See's [facility] Encounter for screening for cardiovascular disor ders 03/30/2016 11/23/2016 Encounter for screening for diabetes mellitus 11/23/2016 Routine general medical exam ination at a health care facility 07/18/2010 10/21/2012 Overview: 07/18/2010, from Dr. Constantino Routine gynecological examination 07/18/2010 10/21/2012 Overview: [facility] [place] Supervision of other normal 10/06/2006 03/14/2011 documented as of this encounter (statuses as of 06/27/2022) [facility] Narrative* Problem Noted Date Resolved Date Encounter for gynecological examination without abnormal finding 03/30/2016 11/23/2016 Overview: [facility] Encounter for screening for cardiovascular disor ders 03/30/2016 11/23/2016 Encounter for screening for diabetes mellitus 11/23/2016 Routine general medical exam ination at a health care facility 07/18/2010 10/21/2012 Overview: 07/18/2010, from Dr. Constantino Routine gynecological examination 07/18/2010 10/21/2012 Overview: [facility], [facility] [place] Supervision of other normal 10/06/2006 03/14/2011 documented as of this encounter (statuses as of 07/05/2022) [facility] Narrative* Problem Noted Date Resolved Date Encounter for gynecological examination without abnormal finding 03/30/2016 11/23/2016 Overview: [facility] Encounter for screening for cardiovascular disor ders 03/30/2016 11/23/2016 Encounter for screening for diabetes mellitus 11/23/2016 Routine general medical exam ination at a health care facility 07/18/2010 10/21/2012 Overview: 07/18/2010, from Dr. Constantino Routine gynecological examination 07/18/2010 10/21/2012 Overview: [facility], [facility] [place] Supervision of other normal 10/06/2006 03/14/2011 documented as of this encounter (statuses as of 07/10/2022) [facility] Narrative* Problem Noted Date Resolved Date Encounter for gynecological examination without abnormal finding 03/30/2016 11/23/2016 Overview: [facility] Encounter for screening for cardiovascular disor ders 03/30/2016 11/23/2016 Encounter for screening for diabetes mellitus 11/23/2016 Routine general medical exam ination at a health care facility 07/18/2010 10/21/2012 Overview: 07/18/2010, from Dr. Constantino Routine gynecological examination 07/18/2010 10/21/2012 Overview: [facility], [facility] [place] Supervision of other normal 10/06/2006 03/14/2011 documented as of this encounter (statuses as of 11/16/2022) [facility] Narrative* Problem Noted Date Resolved Date Encounter for gynecological examination without abnormal finding 03/30/2016 11/23/2016 Overview: See's [facility] Encounter for screening for cardiovascular disor ders 03/30/2016 11/23/2016 Encounter for screening for diabetes mellitus 11/23/2016 Routine general medical exam ination at a health care facility 07/18/2010 10/21/2012 Overview: 07/18/2010, from Dr. Constantino Routine gynecological examination 07/18/2010 10/21/2012 Overview: [facility], [facility] [place] Supervision of other normal 10/06/2006 03/14/2011 documented as of this encounter (statuses as of 01/06/2023) [facility] Narrative* Problem Noted Date Diagnosed Date Resolved Date Encounter for gynecological examination without abnormal finding 03/30/2016 11/23/2016 Overview: See[facility] Encounter for screening for cardiovascular disorders 03/30/2016 11/23/2016 Encounter for screening for diabetes mellitus 03/30/20 16 11/23/2016 Routine general medical exam ination at a health care facility 07/18/2010 10/21/2012 Overview: 07/18/2010, from Dr. Constantino Routine gynecological examination 07/18/2010 10/21[facility]2012 [facility] 10/06/2006 03/14/2011 documented as of this encounter (statuses as of 06/14/2023) [facility] Narrative* Problem Noted Date Diagnosed Date Resolved Date Encounter for gynecological examination without abnormal finding 03/30/2016 11/23/2016 Overview: [facility] Encounter for screening for cardiovascular disorders 03/30/2016 11/23/2016 Encounter for screening for diabetes mellitus 03/30/2011/23/2016 Routine general medical exam ination at a [facility] care facility 07/18/2010 10/21/2012 Overview: 07/18/2010, from Dr. Constantino Routine gynecological examination 07/18/2010 10/21/2012 [facility] 10/06/2006 03/14/2011 documented as of this encounter (statuses as of 06/15/2023) [facility] note* Diagnosis Encounter for screening mammogram for breast cancer documented in this encounter [facility] noteNo assessment information availableWUK Healthcare Work Phone: Evaluation note* Diagnosis Annual physical exam- Primary Routine general medical examination at a health care facility Obesity, Class II, BMI 35-39.9 Obesity, unspecified [facility] Diagnosis Obesity, Class II, BMI 35-39.9- Primary Obesity, unspecified Encounter for medication monitoring Encounter for therapeutic drug monitoring documented in this encounter [facility] note* Diagnosis Obesity, Class I, BMI 30-34.9- Primary Obesity, unspecified Obesity, Class II, BMI 35-39.9 Obesity, unspecified [facility]* Diagnosis Elevated liver enzymes- Primary Other nonspecific abnormal serum enzyme levels [facility] this [facility]* Diagnosis Rhinosinusitis- Primary Unspecified sinusitis (chronic) [facility] Diagnosis Rash and nonspecific skin eruption- Primary Rash and other nonspecific skin eruption documented in this encounter [facility] note* Diagnosis Annual physical exam- Primary Routine general medical examination at a health care facility Screening for hyperlipidemia Screening for lipoid disorders documented in this encounter [facility] note* Diagnosis Encounter for screening mammogram for breast cancer documented in this encounter [facility] note* Diagnosis Annual wellness visit- Primary Screening for depression Encounter for screening examination for other mental health and behavioral disorders documented in this encounter [facility] note* Diagnosis URI with cough and congestion- Primary documented in this encounter [facility] note* Diagnosis Annual physical exam- Primary Routine general medical examination at a health care facility [facility] Diagnostic Procedure Only (Routine) - Pending Review Specialty Diagnoses / Procedures Referred By Alfredo lew Referred To Contact [facility] Diagnoses Encounter for screening mammogram for breast cancer Procedures DEMARCUS SCREENING SCREENING MAMMOGRAPHY BI 2-VIEW BREAST INC Beulah Young APRN.CNP [address] [place] [address] [facility] [address] [place] [address] Referral ID Status Reason Start Date Expiration Date Visits Requested Visits Authorized [id number] Pending Review Auto-Generat ed Referral 05/17/2022 06/16/2023 1 1 [facility] Diagnostic Procedure Only (Routine) - New Request Specialty Diagnoses / Procedures Referred By Alfredo lew Referred To Contact [facility] Diagnoses Encounter for screening mammogram for breast cancer Procedures DEMARCUS SCREENING W ADEOLA SCREENING DIGITAL BREAST TOMOSYNTHESIS BI SCREENING MAMMOGRAPHY BI 2-VIEW BREAST INC Abena Stoner MD [address] [place] [address] [facility] [address] [place] [address] Referral ID Status Reason Start Date Expiration Date Visits Requested Visits Authorized [id number] New Request Auto-Generat ed Referral 06/18/2024 07/18/2025 1 1 [facility] (narrative)No reason for referral information availableLoose Creek Medical Services Work Phone: Chief Complaint and Reason for Visit Chief Complaint Annual (CABINETMAKER MAINTENANCE) SCREENING/BASELINE Chief Complaint Annual (CABINETMAKER MAINTENANCE) PAP Chief Complaint Annual (CABINETMAKER MAINTENANCE) PAP SCREENING Chief Complaint Admit Date LILETTA REMOVAL AND RE-INSERT January 10:55am iud check March 11, 2025 10:57 am Reason for Visit Admit Date Remove/insert IUD January 26, 2025 10: 55am Reason for Referral Specialty Diagnoses / Procedures Referred By Alfredo lew Referred To Contact Laya Duque APRN.TIRE REGROOVING MACHINE OPERATOR [address] [place] [address] Referral ID Status Reason Start Date Expiration Date V isits Requested Visits Authorized [id number] Pending Review 1 1 Summary Purpose Family History No Family History Records FoundNo Family History Records Found Advance Directives No Advanced Directives Records FoundNo Advanced Directives Records Found Additional Source Comments Source Comments (unrecognize d section and content) In the event this informatio n is protected by the Federal Confidentiality of Alcohol and Drug Abuse Patient Records regulations: The Federal rules restrict any use of the information to criminally investigate or prosecute any alcohol or drug abuse patient.[facility] Center[facility] the event this information is protected by the Federal Confidentiality of Alcohol and Drug Abuse Patient Records regulations: The Federal rules restrict any use of the information to criminally investigate or prosecute any alcohol or drug abuse patient.[facility] CenterIn the event this information is protected by the Federal Confidentiality of Alcohol and Drug Abuse Patient Records regulations: The Federal rules restrict any use of the information to criminally investigate or prosecute any alcohol or drug abuse patient.[facility] CenterIn the event this information is protected by the Federal Confidentiality of Alcohol and Drug Abuse Patient Records regulations: The Federal rules restrict any use of the information to criminally investigate or prosecute any alcohol or drug abuse patient.[facility] CenterIn the event this information is protected by the Federal Confidentiality of Alcohol and Drug Abuse Patient Records regulations: The Federal rules restrict any use of the information to criminally investigate or prosecute any alcohol or drug abuse patient.[facility] CenterIn the event this information is protected by the Federal Confidentiality of Alcohol and Drug Abuse Patient Records regulations: The Federal rules restrict any use of the information to criminally investigate or prosecute any alcohol or drug abuse patient.[facility] CenterIn the event this information is protected by the Federal Confidentiality of Alcohol and Drug Abuse Patient Records regulations: The Federal rules restrict any use of the information to criminally investigate or prosecute any alcohol or drug abuse patient.[facility] CenterIn the event this information is protected by the Federal Confidentiality of Alcohol and Drug Abuse Patient Records regulations: The Federal rules restrict any use of the information to criminally investigate or prosecute any alcohol or drug abuse patient.[facility] CenterIn the event this information is protected by the Federal Confidentiality of Alcohol and Drug Abuse Patient Records regulations: The Federal rules restrict any use of the information to criminally investigate or prosecute any alcohol or drug abuse patient.[facility] CenterIn the event this information is protected by the Federal Confidentiality of Alcohol and Drug Abuse Patient Records regulations: The Federal rules restrict any use of the information to criminally investigate or prosecute any alcohol or drug abuse patient.[facility] CenterIn the event this information is protected by the Federal Confidentiality of Alcohol and Drug Abuse Patient Records regulations: The Federal rules restrict any use of the information to criminally investigate or prosecute any alcohol or drug abuse patient.[facility] CenterIn the event this information is protected by the Federal Confidentiality of Alcohol and Drug Abuse Patient Records regulations: The Federal rules restrict any use of the information to criminally investigate or prosecute any alcohol or drug abuse patient.[facility] CenterIn the event this information is protected by the Federal Confidentiality of Alcohol and Drug Abuse Patient Records regulations: The Federal rules restrict any use of the information to criminally investigate or prosecute any alcohol or drug abuse patient.[facility] CenterIn the event this information is protected by the Federal Confidentiality of Alcohol and Drug Abuse Patient Records regulations: The Federal rules restrict any use of the information to criminally investigate or prosecute any alcohol or drug abuse patient.[facility] CenterIn the event this information is protected by the Federal Confidentiality of Alcohol and Drug Abuse Patient Records regulations: The Federal rules restrict any use of the information to criminally investigate or prosecute any alcohol or drug abuse patient.[facility] CenterIn the event this information is protected by the Federal Confidentiality of Alcohol and Drug Abuse Patient Records regulations: The Federal rules restrict any use of the information to criminally investigate or prosecute any alcohol or drug abuse patient.[facility] CenterIn the event this information is protected by the Federal Confidentiality of Alcohol and Drug Abuse Patient Records regulations: The Federal rules restrict any use of the information to criminally investigate or prosecute any alcohol or drug abuse patient.[facility] CenterIn the event this information is protected by the Federal Confidentiality of Alcohol and Drug Abuse Patient Records regulations: The Federal rules restrict any use of the information to criminally investigate or prosecute any alcohol or drug abuse patient.[facility] Care Teams (unrecognized sec tion and content) High School Guidance Counselor Relationship Specialty Start Date End Date Podlogar, Beulah, GUARD IMMIGRATION.TIRE REGROOVING MACHINE OPERATOR [address] [facility] [place] [place] [address] PCP - General Family Practice 06/07/21 High School Guidance Counselor Relationship Specialty Start Date End Date Podlogar, , GUARD IMMIGRATION.TIRE REGROOVING MACHINE OPERATOR [address] [facility] [place] [place] [address] PCP - General Family Practice 06/07/21 High School Guidance Counselor Relationship Specialty Start Date End Date Podlogar, , GUARD IMMIGRATION.TIRE REGROOVING MACHINE OPERATOR [address] [facility] [place] [place] [address] PCP - General Family Practice 06/07/21 High School Guidance Counselor Relationship Specialty Start Date End Date Podlogar, , GUARD IMMIGRATION.TIRE REGROOVING MACHINE OPERATOR [address] [facility] [place] [address] PCP - General Family Practice 06/07/21 High School Guidance Counselor Relationship Specialty Start Date End Date Podlogar, Beulah, GUARD IMMIGRATION.TIRE REGROOVING MACHINE OPERATOR [address] [facility] [place] [place] [address] PCP - General Family Practice 06/07/21 High School Guidance Counselor Relationship Specialty Start Date End Date Podlogar, , GUARD IMMIGRATION.TIRE REGROOVING MACHINE OPERATOR [address] [facility] [place] [place] [address] PCP - General Family Medicine 06/07/21 High School Guidance Counselor Relationship Specialty Start Date End Date Podlogar, Beulah, GUARD IMMIGRATION.TIRE REGROOVING MACHINE OPERATOR [address] [place] [address] PCP - General Family Medicine 06/07/21 High School Guidance Counselor Relationship Specialty Start Date End Date Podlogar, DOROTHY CarcamoN.TIRE REGROOVING MACHINE OPERATOR [address] [place] [address] PCP - General Family Medicine 06/07/21 High School Guidance Counselor Relationship Specialty Start Date End Date Podlogar, Beulah, GUARD IMMIGRATION.TIRE REGROOVING MACHINE OPERATOR [address] [place] [address] PCP - General Family Medicine 06/07/21 Team Status: Active Member Role Status Dates Dr. Ignacio Shelby MD Family Provider Active Beulah Luciologbienvenido FISH DRIER, FISH DRIER-C Primary Care Provider Active Team Status: Inactive Member Role Status Dates Dr. Monik Palumbo MD Referring Provider Active Trudi Morataya FISH DRIER, FISH DRIER-C Attending Provider Active Beulah Jane FISH DRIER, FISH DRIER-C Primary Care Provider Active Team Status: Inactive Member Role Status Dates Beulah Luciologbienvenido FISH DRIER, FISH DRIER-C Primary Care Provider Active Trudi Morataya FISH DRIER, FISH DRIER-C Attending Provider, Referring Provider Active [employer] Relationship Specialty Start Date End Date Abena Cheng MD [address] [place] [address] PCP - General Family Medicine 06/13/23 [employer] Guid[employer] Counsel[employer] Relationship Specialty Start Date End Date Abena Cheng MD [address] [place] [address] PCP - General Family Medicine 06/13/23 [employer] Guid[employer] Counselor Relationship Specialty Start Date End Date Abena Cheng MD [address] [place] [address] PCP - General Family Medicine 06/13/23 [employer] Guid[employer] Counselor Relationship Specialty Start Date End Date Abena Cheng MD [address] [place], [place] [id number] PCP - General Family Medicine 06/13/23 Team Status: Inactive Member Role Status Dates Beulah Podlogar FISH DRIER, FISH DRIER-C Primary Care Provider Active Start: January 26, 2025 End: January 26, 2025 Beulah Reinosoar FISH DRIER, FISH DRIER-C Referring Provider Active Start: January 26, 2025 End: January 26, 2025 Trudi Morataya FISH DRIER, FISH DRIER-C Attending Provider Active Start: January 26, 2025 End: January 26, 2025 Team Status: Inactive Member Role Status Dates Beulah Podlogar FISH DRIER, FISH DRIER-C Primary Care Provider Active Start: March 11, 2025 End: March 11, 2025 Beulah Podlogar FISH DRIER, FISH DRIER-C Referring Provider Active Start: March 11, 2025 End: March 11, 2025 Trudi Morataya FISH DRIER, FISH DRIER-C Attending Provider Active Start: March 11, 2025 End: March 11, 2025 [employer] Guid[employer] Counselor Relationship Specialty Start Date End Date Abena Cheng MD [address] [place] [address] [id number] PCP - General Family Medicine 06/13/23 Podlogar, NISH Carcamo.TIRE REGROOVING MACHINE OPERATOR [address] [place] [address] [id number] Refractory Technician Family Medicine 09/13/24 Erin Vazquez APRN.TI[employer] REGROOVING MACHINE OPERATOR [address] [place] [address] [phone] [facility] [employer] Guid[employer] Counselor Relationship Specialty Start Date End Date Abena Cheng MD [address] [place] [address] [phone] PCP - General Family Medicine 06/13/23 Podlogar, NISH Carcamo.TIRE REGROOVING MACHINE OPERATOR [address] [place] [address] [phone] [facility] 09/13/24 Erin Vazquez APRN.[facility] [address] [place] [address] [facility] 03/19/25 Goals (unrecognized section and content) Goals may be documented in a n alternate sectionGoals may be documented in an alternate sectionGoals may be documented in an alternate sectionGoals may be documented in an alternate section Reason for Visit (unrecogniz ed section and content) Reason Comments Physical Reason Comments Medication Problem Patient Update Reason Comments Discussion Weight lose medicati on Reason Comments Results Reason Comments Insurance Authorization Reason Comments Forms Reason Comments Nasal Congestion drainage, cough x 5 days Reason Comments Rash On nose and face x 4 days Reason Comments Head Congestion Cough, chest congest ion, low fever x6 days Reason Onset Date Comments Results 04/17/2025 INFORMATION SOURCE (unrecogn ized section and content) DATE CREATED AUTHOR 04/19/2025 [facility] DATE CREATED AUTHOR AUTHOR'S ORGANIZ ATION 05/28/2025 [facility] FOR RECORDS PERTAINING TO PATIENTS WHO ARE OR HAVE BEEN ENROLLED IN A CHEMICAL DEPENDENCY/SUBSTANCEABUSE PROGRAM, SOME INFORMATION MAY BE OMITTED. This clinical summary was aggregated from multiple sources. Caution should be exercised in using it in the provision of clinical care. This summary normalizes information from multiple sources, and as a consequence, information in this document may materially change the coding, format and clinical context of patient data. In addition, data may be omitted in some cases. CLINICAL DECISIONS SHOULD BE BASED ON THE PRIMARY CLINICAL RECORDS. [employer] provides no warranty or guarantee of the accuracy or completeness of information in this document.
--- NOTE | 2025-05-28 07:15 | BI_ITS ---
EXAM: SCRN MAMM (CAD)W/ADEOLA BILAT DATE: 05/28/2025 CLINICAL HISTORY: F, Age 45 y/o , SCREENING FOR BREAST CANCER History of aunt with breast cancer. TECHNIQUE: SCRN MAMM (CAD)W/ADEOLA BILAT COMPARISON: Prior exam(s) dated May 26, 2024.. FINDINGS: TISSUE DENSITY: There are scattered areas of fibroglandular density. Bilateral Breast Mammographic Findings: No significant masses, calcifications or other abnormalities are identified. Stable calcified nodular density in the lateral retroareolar region of the right breast. No suspicious masses, areas of developing architectural distortion, or suspicious calcifications. There has been no significant interval change. BI/SCRN MAMM (CAD)W/ADEOLA BILAT IMPRESSION: Stable examination. OVERALL FINAL ASSESSMENT BI-RADS 2: BENIGN RECOMMENDATION: Routine annual follow-up in 1 Year A letter with findings and recommendations will be mailed to the patient. Reading Location: [facility]
== END | disposition home or self-care (01) ==
LOC: OPBI 07:09
PROVIDERS: PCP Nurse Practitioner Primary Care; Referring Provider Nurse Practitioner Women's Health; Visit Provider Nurse Practitioner Women's Health
DX: Z12.31 Encounter for screening mammogram for malignant neoplasm of breast (principal)
CPT/HCPCS: 77063; 77067